=== PATIENT | female | born 1930 | race Caucasian/White ===

== ENCOUNTER 2016-12-24 15:45 | Inpatient (IN) | payer MEDICARE, MEDICAID ==
[~2016-12-24] VITALS: Ht 167.6 cm; Wt 94.8 kg
[~2016-12-24 15:45] MED LIST: ACET-868 PO; ATEN50TA PO; ATOR20TA PO; CARB-94 PO; DILT120C2 PO; DOCU-25 PO; FURO40TA5 PO; GABA300C PO; ISOS30TA6 PO; LACT1CAP39 PO; LOSA25TA3 PO; MELA3TAB PO
--- NOTE | 2016-12-24 16:15 | NUR ---
PT BIB RA, D/T LOW BP. PATIENT A/OX 3. BREATHING EVEN AND UNLABORED. NO SOB. PATIENT'S VITALS CHECKED, SAFETY MEASURES IN PLACE, COMFORT MEASURES IN PLACE. AWAITING MD ORDERS.
[2016-12-24] MEDS ORDERED: IV NS 0.9% 1,000 ML BAG IV ONE (16:30)
[2016-12-24] MEDS ORDERED: PIPERACILLIN /TAZOBACTAM 3.375 G in IV D5W 50 ML IV ONE (16:30)
[2016-12-24 16:36] LABS: EOSINOPHILS # (AUTO) 0.2 /CMM (0.0-0.7); HEMATOCRIT 38 % (33-45)
[2016-12-24 16:38] LABS: BASOPHILS % (AUTO) 0.2 % (0.0-2.0); EOSINOPHILS % (AUTO) 0.9 % (0.0-6.0); HEMOGLOBIN 12.7 g/dL (11.5-14.8); LYMPHOCYTES # (AUTO) 0.4 /CMM (0.8-4.8); LYMPHOCYTES % (AUTO) 2.1 % (20.0-44.0); MEAN CORPUSCULAR HEMOGLOBIN 29 PG (26.0-33.0); MEAN CORPUSCULAR HGB CONC 33 g/dl (31.0-36.0); MEAN CORPUSCULAR VOLUME 87 fL (82-100); MONOCYTES # (AUTO) 0.5 /CMM (0.1-1.30); MONOCYTES % (AUTO) 2.7 % (2.0-12.0); NEUTROPHILS # (AUTO) 16.7 /CMM (1.8-8.9); NEUTROPHILS % (AUTO) 94.1 % (43.0-81.0); PLATELET COUNT (AUTO) 316 /CMM (150-450); RDW COEFFICIENT OF VARIATION 13.7 (11.5-15.0); RED BLOOD CELL COUNT(AUTO) 4.39 MIL/uL (4.0-5.2); WHITE BLOOD COUNT (AUTO) 17.8 K/uL (4.3-11.0)
[2016-12-24] MEDS ORDERED: IV SET PRIMARY 1 EA INFUS.SET MC ONE ×2 (16:40→16:53)
[2016-12-24] MEDS ORDERED: IV NS 0.9% 1,000 ML ONE (16:40)
[2016-12-24 16:50] LABS: INR 1.11 (0.87-1.13)
[2016-12-24] MEDS ORDERED: IV NS 0.9% 2,000 ML ONE (16:53)
[2016-12-24 16:56] LABS: TROPONIN I 0.037 ng/mL (0.00-0.056)
[2016-12-24 16:58] LABS: ALANINE AMINOTRANSFERASE 8 U/L (12-78); ALBUMIN 2.3 g/dL (3.4-5.0); ALKALINE PHOSPHATASE 94 U/L (46-116); ASPARTATE AMINOTRANSFERASE 14 U/L (15-37); BILIRUBIN,DIRECT 0.1 mg/dL (0.0-0.2); BILIRUBIN,TOTAL 0.4 mg/dL (0.2-1.0); CARBON DIOXIDE 28 mmol/L (21-32); CHLORIDE 104 mmol/L (98-107); CREATININE 1.5 mg/dL (0.6-1.3); GLUCOSE 242 mg/dL (74-106); POTASSIUM 4.4 mmol/L (3.5-5.1); SODIUM SERUM 138 mmol/L (136-145); TOTAL PROTEIN, SERUM 5.7 g/dL (6.4-8.2); UREA NITROGEN, BLOOD 22 mg/dL (7-18)
--- NOTE | 2016-12-24 17:00 | NUR ---
SEPSIS PROTOCOL INITIATED. BOLUS CHALLENGE STARTED. WILL MONITOR.
[2016-12-24 17:02] LABS: APPEARANCE,URINE CLOUDY (CLEAR); COLOR,URINE DARK YELLOW (YELLOW); LEUKOCYTE ESTERASE ,URINE 3+ (NEGATIVE); NITRITE, URINE POSITIVE (NEGATIVE)
[2016-12-24 17:03] LABS: BLOOD, URINE 2+ Ery/uL (NEGATIVE); PROTEIN,URINE 2+ mg/dl (NEGATIVE); UROBILINOGEN,URINE NORMAL EU/dL (0.2)
--- NOTE | 2016-12-24 17:03 | NUR ---
NEW IV STARTED LEFT AC, 20 GAUGE.
[2016-12-24 17:04] LABS: BILIRUBIN,URINE NEGATIVE (NEGATIVE); KETONES,URINE NEGATIVE (NEGATIVE); UGLUCOSE NEGATIVE (NEGATIVE)
[2016-12-24 17:04] LABS: CALCIUM, SERUM 8.9 mg/dL (8.5-10.1)
[2016-12-24 17:14] LABS: BAND % (MANUAL) 5 % (0.0-5.0); EOSINOPHILS % (MANUAL) 1 % (0-4); LYMPHOCYTES % (MANUAL) 7 % (16-48); MONOCYTES % (MANUAL) 4 % (0-11.0); NEUTROPHILS % (MANUAL) 83 (42-76)
[2016-12-24 17:22] LABS: BACTERIA,URINE Moderate /HPF (None Seen); SQUAMOUS EPITHELIAL CELL,UR Few /HPF (None Seen); WBC,URINE TOO NUMEROUS TO COUN /HPF (0-3)
[2016-12-24] MEDS ORDERED: KETOROLAC TROMETHAMINE INJ 30 MG/ML VIAL ONE (17:30)
--- NOTE | 2016-12-24 17:45 | NUR ---
CALLED DR.JOSEF RAMOS, TRANSFERRED CALL TO
--- NOTE | 2016-12-24 17:56 | NUR ---
[facility]
[2016-12-24] MEDS ORDERED: CHOL200026 PO (18:12)
[2016-12-24] MEDS ORDERED: CLON0.5T4 PO (18:12)
[2016-12-24] MEDS ORDERED: CRAN3875 PO (18:12)
[2016-12-24] MEDS ORDERED: APIX5TAB PO (18:12)
[2016-12-24] MEDS ORDERED: SERT50TA PO (18:12)
[2016-12-24] MEDS ORDERED: POTA20TA83 PO (18:12)
[2016-12-24] MEDS ORDERED: SITA100T PO (18:12)
[2016-12-24] MEDS ORDERED: PANT40TA2 PO (18:12)
--- NOTE | 2016-12-24 18:13 | NUR ---
REPORT GIVEN TO RNTOMAS. PATIENT TO BE ADMITTED TO [facility], [facility]
[2016-12-24] MEDS ORDERED: VANCOMYCIN 1 GM in IV D5W 250 ML IV SCH (19:00)
--- NOTE | 2016-12-24 19:35 | NUR ---
RN INITIAL NOTE RECEIVED PT IN NO ACUTE DISTRESS FROM ER ON [facility]. TRANSFERRED PT TO BED. PT IS A/O X 3 AND ABLE TO MAKE NEEDS KNOWN. PT IS ON O2 VIA NC @ 4LPM AND TOLERATING WELL WITH O2 SAT @ 93. PT NOT C/O ANY SOB, DIFFICULTY BREATHING OR PAIN AT THIS TIME. PT PLACED ON TELE WITH SR WITH 1ST DEGREE HEART BLOCK ON THE MONITOR. PT HAS LFA 20G THAT WAS ACCIDENTLY PULLED OUT UPON TRANSFER TO BED. PT HAS LAC 20G THAT IS CLEAN DRY INTACT AND PATENT WITH VANCOMYCIN INFUSING @ 250ML/HR. BED IN LOW LOCK POSITION POST TRANSFER WITH RAILS UP X 2. CALL LIGHT WITHIN REACH AND ALL SAFETY MEASURES ENSURED AND CARRIED OUT. WILL CONTINUE TO MONITOR FOR ANY CHANGES IN CONDITION DURING SHIFT.
--- NOTE | 2016-12-24 19:53 | NUR ---
RN NOTE RECEIVED VERBAL ORDER TO PLACE FERNANDEZ CATHETER BY DR RAMOS. F/C PLACED SUCCESSFULLY WITH CLOUDY URINE DRAINING. DR RAMOS NOTIFIED.
[2016-12-24 20:00] VITALS: BP 106/56
[2016-12-24] MEDS ORDERED: ONDANSETRON HCL/PF 4 MG/2 ML VIAL IV PRN (20:00)
[2016-12-24] MEDS ORDERED: IV NS 0.9% 100 ML IV PRN (20:00)
--- NOTE | 2016-12-24 20:00 | NUR ---
RN NOTE VITALS TAKEN AND PT HAS FEVER OF 101.4, COOLING MEASURES STARTED AND MD NOTIFIED.
[2016-12-24] MEDS ORDERED: FEE PK DOSING 1 MIN EA MC ONE (20:23)
[2016-12-24] MEDS ORDERED: DEXTROSE 50%-WATER 50 ML DISP.SYRIN IV PRN (20:30)
[2016-12-24] MEDS: BLOOD SUGAR DIAGNOSTIC 1 EACH STRIP IN SCH ×2 (21:23→22:58)
[2016-12-24] MEDS: *INSULIN REGULAR(HUMULIN R)HUM 100 UNIT/ML VIAL SQ PRN ×2 (21:28→23:01)
[2016-12-24] MEDS ORDERED: INSULIN DETEMIR 100 UNIT/ML CARTRIDGE SQ SCH (22:00)
[2016-12-24] MEDS ORDERED: BLOOD SUGAR DIAGNOSTIC 1 EACH STRIP VI SCH (22:00)
[2016-12-24] MEDS ORDERED: SECONDARY IV SET 1 EA INFUS.SET MC ONE (23:23)
[2016-12-24] MEDS ORDERED: IV SET PRIMARY PUMP SET 1 EA INFUS.SET MC ONE (23:23)
[2016-12-24] MEDS ORDERED: IV NS 0.9% 250 ML IV ONE (23:23)
[2016-12-24] MEDS: PIPERACILLIN /TAZOBACTAM 2.25 G in IV D5W 50 ML IV SCH (23:45)
[2016-12-25] VITALS (7 sets, daily range): BP systolic 92–129; BP diastolic 47–59
[2016-12-25] MEDS ORDERED: PIPERACILLIN /TAZOBACTAM 3.375 G in IV D5W 50 ML IV SCH ×2
[2016-12-25] MEDS: ACETAMINOPHEN 325 MG TABLET PO PRN ×2 (00:23→22:40)
[2016-12-25] MEDS ORDERED: IV NS 0.9% 1,000 ML ONE (02:49)
[2016-12-25] MEDS: PIPERACILLIN /TAZOBACTAM 2.25 G in IV D5W 50 ML IV SCH ×3 (06:39→17:56)
[2016-12-25] MEDS: PANTOPRAZOLE 40 MG TABLET.DR PO SCH (06:39)
[2016-12-25] MEDS: BLOOD SUGAR DIAGNOSTIC 1 EACH STRIP IN SCH ×4 (06:39→21:59)
[2016-12-25] MEDS: INSULIN REGULAR, HUMAN 100 UNIT/ML 3 ML VIAL SQ PRN ×3 (06:56→17:56)
--- NOTE | 2016-12-25 07:00 | NUR ---
RN OPENING NOTES RECEIVED PATIENT ASLEEP IN BED. AROUSABLE TO VERBAL AND TACTILE STIMULI, AO X4. ABLE TO MAKE NEEDS KNOWN. NO RESPIRATORY DISTRESS NOTED, BREATHING EVEN AND UNLABORED, O2 SAT 100% ON O2 4LPM VIA NC. ON TELE SINUS RHYTHM IN THE HIGH 70S. AFEBRILE. DENIES ANY PAIN OR DISCOMFORT @ THIS TIME. FERNANDEZ INTACT & DRAINING, SOME CLOUDINESS NOTED IN URINE. LAC IV SITE CDI WITH IV FLUIDS 1/2 NS RUNNING @ 90CC/HR. SIDE RAILS UP, BED LOCKED AND IN LOWEST POSITION, CALL LIGHT WITHIN EASY REACH. CONTINUE TO MONITOR.
--- NOTE | 2016-12-25 07:11 | NUR ---
RN CLOSING NOTE PT REMAINS IN NO ACUTE DISTRESS IN BED. PT DID NOT HAVE ANY SIGNIFICANT CHANGE IN CONDITION DURING SHIFT. ALL NEEDS MET ALL ORDERS CARRIED OUT. WILL ENDORSE TO AM RN FOR CONTINUITY OF CARE.
[2016-12-25 07:22] LABS: CALCIUM, SERUM 8.4 mg/dL (8.5-10.1); CARBON DIOXIDE 24 mmol/L (21-32); CHLORIDE 108 mmol/L (98-107); CREATININE 1.5 mg/dL (0.6-1.3); GLUCOSE 141 mg/dL (74-106); POTASSIUM 4.5 mmol/L (3.5-5.1); SODIUM SERUM 141 mmol/L (136-145); UREA NITROGEN, BLOOD 24 mg/dL (7-18)
[2016-12-25 07:35] LABS: BASOPHILS # (AUTO) 0.1 /CMM (0.0-0.2); BASOPHILS % (AUTO) 0.7 % (0.0-2.0); EOSINOPHILS # (AUTO) 0.8 /CMM (0.0-0.7); EOSINOPHILS % (AUTO) 4.2 % (0.0-6.0); HEMATOCRIT 39 % (33-45); LYMPHOCYTES % (AUTO) 5.2 % (20.0-44.0); MEAN CORPUSCULAR HEMOGLOBIN 29 PG (26.0-33.0); MEAN CORPUSCULAR HGB CONC 33 g/dl (31.0-36.0); MEAN CORPUSCULAR VOLUME 87 fL (82-100); MONOCYTES # (AUTO) 0.5 /CMM (0.1-1.30); MONOCYTES % (AUTO) 2.5 % (2.0-12.0); NEUTROPHILS % (AUTO) 87.4 % (43.0-81.0); PLATELET COUNT (AUTO) 260 /CMM (150-450); RDW COEFFICIENT OF VARIATION 14.2 (11.5-15.0); RED BLOOD CELL COUNT(AUTO) 4.45 MIL/uL (4.0-5.2); WHITE BLOOD COUNT (AUTO) 19.4 K/uL (4.3-11.0)
[2016-12-25] MEDS: DOCUSATE SODIUM 100 MG CAPSULE PO SCH ×3 (08:50→16:35)
[2016-12-25] MEDS: clonazePAM 0.5 MG TABLET PO SCH ×2 (08:51→16:35)
[2016-12-25] MEDS: SERTRALINE HCL 50 MG TABLET PO SCH (08:51)
[2016-12-25 09:01] LABS: BAND % (MANUAL) 11 % (0.0-5.0); EOSINOPHILS % (MANUAL) 6 % (0-4); LYMPHOCYTES % (MANUAL) 7 % (16-48); NEUTROPHILS % (MANUAL) 76 (42-76)
[2016-12-25] MEDS ORDERED: IV NS 0.9% 1,000 ML IV PRN ×2 (09:49→11:24)
[2016-12-25] MEDS: CARBIDOPA/LEVODOPA 25/250 MG 1 UDTAB PO SCH ×3 (11:07→16:35)
[2016-12-25] MEDS ORDERED: Z GUARD REMEDY 2 OZ OINT TP PRN (13:30)
[2016-12-25] MEDS: IV NS 0.9% 1,000 ML IV SCH (16:26)
--- NOTE | 2016-12-25 18:30 | NUR ---
RN NOTES PATIENT ASLEEP IN BED. VSS STABLE, NO RESPIRATORY DISTRESS NOTED. BREATHING EVEN AND UNLABORED. TELE SINUS RHYTHM IN THE 70S. NO SIGNIFICANT EVENTS DURING SHIFT. ALL NEEDS MET PROMPTLY. RIGHT HAND IV SITE CDI WITH FLUIDS 1/2 NS RUNNING @ 70CC/HR. SIDE RAILS UP, BED LOCKED AND IN LOWEST POSITION, CALL LIGHT WITHIN EASY REACH.
--- NOTE | 2016-12-25 19:20 | NUR ---
RN INITIAL NOTE RECEIVED PT IN NO ACUTE DISTRESS FROM ER ON [facility]. TRANSFERRED PT TO BED. PT IS A/O X 3 AND ABLE TO MAKE NEEDS KNOWN. PT IS ON O2 VIA NC @ 4LPM AND TOLERATING WELL WITH O2 SAT @ 94. PT NOT C/O ANY SOB, DIFFICULTY BREATHING OR PAIN AT THIS TIME. PT PLACED ON TELE WITH SR WITH 1ST DEGREE HEART BLOCK ON THE MONITOR. PT HAS LAC 20G THAT IS CLEAN DRY INTACT AND PATENT WITH NS @ 70ML/HR. BED IN LOW LOCK POSITION WITH RAILS UP X 2. CALL LIGHT WITHIN REACH AND ALL SAFETY MEASURES ENSURED AND CARRIED OUT. WILL CONTINUE TO MONITOR FOR ANY CHANGES IN CONDITION DURING SHIFT.
[2016-12-25] MEDS ORDERED: SECONDARY IV SET 1 EA INFUS.SET MC ONE (19:54)
[2016-12-25] MEDS ORDERED: VANCOMYCIN 1 GM in IV D5W 250 ML IV SCH (20:00)
[2016-12-25] MEDS: *INSULIN REGULAR(HUMULIN R)HUM 100 UNIT/ML VIAL SQ PRN (21:58)
[2016-12-25] MEDS: INSULIN DETEMIR 100 UNIT/ML CARTRIDGE SQ SCH (21:59)
[2016-12-26] VITALS: BP 116/57
[2016-12-26] MEDS: PIPERACILLIN /TAZOBACTAM 2.25 G in IV D5W 50 ML IV SCH ×2 (00:27→06:35)
[2016-12-26 04:00] VITALS: BP 142/62
[2016-12-26 06:32] LABS: BASOPHILS % (AUTO) 0.2 % (0.0-2.0); EOSINOPHILS # (AUTO) 0.7 /CMM (0.0-0.7); EOSINOPHILS % (AUTO) 8.2 % (0.0-6.0); HEMATOCRIT 36 % (33-45); HEMOGLOBIN 12.3 g/dL (11.5-14.8); LYMPHOCYTES # (AUTO) 1.1 /CMM (0.8-4.8); LYMPHOCYTES % (AUTO) 12.5 % (20.0-44.0); MEAN CORPUSCULAR HEMOGLOBIN 29 PG (26.0-33.0); MEAN CORPUSCULAR HGB CONC 34 g/dl (31.0-36.0); MEAN CORPUSCULAR VOLUME 87 fL (82-100); MONOCYTES # (AUTO) 0.1 /CMM (0.1-1.30); MONOCYTES % (AUTO) 1.4 % (2.0-12.0); NEUTROPHILS # (AUTO) 6.5 /CMM (1.8-8.9); NEUTROPHILS % (AUTO) 77.7 % (43.0-81.0); PLATELET COUNT (AUTO) 234 /CMM (150-450); RDW COEFFICIENT OF VARIATION 14.2 (11.5-15.0); RED BLOOD CELL COUNT(AUTO) 4.17 MIL/uL (4.0-5.2); WHITE BLOOD COUNT (AUTO) 8.4 K/uL (4.3-11.0)
[2016-12-26] MEDS: BLOOD SUGAR DIAGNOSTIC 1 EACH STRIP IN SCH ×4 (06:35→22:00)
[2016-12-26] MEDS: IV NS 0.9% 1,000 ML IV SCH (06:35)
[2016-12-26] MEDS: PANTOPRAZOLE 40 MG TABLET.DR PO SCH (06:35)
[2016-12-26 06:47] LABS: CALCIUM, SERUM 8.3 mg/dL (8.5-10.1); CARBON DIOXIDE 23 mmol/L (21-32); CHLORIDE 110 mmol/L (98-107); CREATININE 0.9 mg/dL (0.6-1.3); GLUCOSE 122 mg/dL (74-106); POTASSIUM 3.8 mmol/L (3.5-5.1); SODIUM SERUM 143 mmol/L (136-145); UREA NITROGEN, BLOOD 18 mg/dL (7-18)
[2016-12-26 08:00] VITALS: BP 144/65
--- NOTE | 2016-12-26 08:22 | NUR ---
RN INITIAL NOTE PT ALERT AND ORIENTED x3 IN NO ACUTE DISTRESS ABLE TO MAKE NEEDS KNOWN. PT IS ON O2 VIA NC @ 4LPM AND TOLERATING WELL WITH O2 SAT @ 100. NO C/O ANY SOB, DIFFICULTY BREATHING OR PAIN AT THIS TIME. PT ON TELE WITH SR WITH 1ST DEGREE HEART BLOCK ON THE MONITOR. PT HAS LAC 20G THAT IS CLEAN DRY INTACT AND PATENT WITH NS @ 70ML/HR. BED IN LOW LOCK POSITION WITH RAILS UP X 2. CALL LIGHT WITHIN REACH AND ALL SAFETY MEASURES ENSURED AND CARRIED OUT. WILL CONTINUE TO MONITOR FOR ANY CHANGES IN CONDITION DURING SHIFT.
[2016-12-26] MEDS: DOCUSATE SODIUM 100 MG CAPSULE PO SCH ×3 (09:04→17:22)
[2016-12-26] MEDS: clonazePAM 0.5 MG TABLET PO SCH ×2 (09:04→17:22)
[2016-12-26] MEDS: SERTRALINE HCL 50 MG TABLET PO SCH (09:04)
[2016-12-26] MEDS: CARBIDOPA/LEVODOPA 25/250 MG 1 UDTAB PO SCH ×3 (09:04→17:22)
[2016-12-26] MEDS: ATENOLOL 25 MG TABLET PO SCH (11:41)
[2016-12-26] MEDS: *INSULIN REGULAR(HUMULIN R)HUM 100 UNIT/ML VIAL SQ PRN ×2 (11:49→17:29)
[2016-12-26 12:00] VITALS: BP 162/72
[2016-12-26] MEDS ORDERED: SECONDARY IV SET 1 EA INFUS.SET MC ONE (14:07)
[2016-12-26] MEDS: CEFTRIAXONE 1 G in IV D5W 50 ML IV SCH (14:13)
[2016-12-26 16:00] VITALS: BP 169/82
[2016-12-26] MEDS: APIXABAN 5 MG TABLET PO SCH (17:00)
--- NOTE | 2016-12-26 17:30 | NUR ---
RN NOTE PATIENT BECAME EXTREMELY AGITATED AND SLIGHTLY AGGRESSIVE TONIGHT WITH STAFF AND ALSO ROOMMATE PATIENT. RN INFORMED CHARGE NURSE SOON IN REGARDS TO THE PATIENTS BEHAVIOR PATIENT WILL BE TRANSFERRED TO ROOM 113
--- NOTE | 2016-12-26 18:25 | NUR ---
RN CLOSING NOTE PT REMAINS IN NO ACUTE DISTRESS IN BED. PT DID NOT HAVE ANY SIGNIFICANT CHANGE IN CONDITION DURING SHIFT. HOWEVER PATIENT DID BECOME EXTREME AGITATED AND SLIGHTLY AGGRESSIVE AT 1700. ALL NEEDS MET ALL ORDERS CARRIED OUT. WILL ENDORSE TO PM RN FOR CONTINUITY OF CARE.
[2016-12-26] MEDS ORDERED: [UNRECOGNIZED DRUG - OTHER] IV ONE (18:53)
[2016-12-26] MEDS ORDERED: IV D5/ 0.9% NACL 0 ML IV ONE (18:54)
[2016-12-26] MEDS ORDERED: IV NS 0.9% 1,000 ML ONE (18:56)
[2016-12-26] MEDS ORDERED: IV SET PRIMARY PUMP SET 1 EA INFUS.SET MC ONE (19:00)
--- NOTE | 2016-12-26 19:16 | NUR ---
PATIENT TRANSFERRED TO ROOM 113-2 NO COMPLAINTS ALL NEEDS ATTENDED . IV FLUIDS RESTARTED. INITIALLY WRONG IV FLUIDS PULLED AND RETURNED
--- NOTE | 2016-12-26 19:30 | NUR ---
RN INITIAL NOTE RECEIVED PATIENT IN BED, AWAKE, ALERT AND ORIENTED X3, ABLE TO MAKE NEEDS KNOWN. PT IS ON O2 VIA NC @ 4LPM AND TOLERATING WELL WITH O2 SAT @ 95. PATIENT DENIES ANY SOB, FREE FROM ANY S/S OF RESPIRATORY DISTRESS. PATIENT ON TERLEMETRY MONITORING, REVEALING SINUS RHYTHM HR = 84 AT THIS TIME. PT HAS LAC 20G THAT IS CLEAN DRY INTACT AND PATENT WITH NS @ 70ML/HR, FREE FROM ANY S/S OF INFILTRATION OR PHLEBITIS. BED IN LOW LOCK POSITION WITH RAILS UP X 2. CALL LIGHT WITHIN REACH AND ALL SAFETY MEASURES ENSURED AND CARRIED OUT. WILL CONTINUE TO MONITOR FOR ANY CHANGES IN CONDITION DURING SHIFT.
[2016-12-26 20:00] VITALS: BP 174/85
[2016-12-26] MEDS: INSULIN DETEMIR 100 UNIT/ML CARTRIDGE SQ SCH (22:00)
--- NOTE | 2016-12-26 22:27 | NUR ---
RN NOTES PATIENT REFUSING BLOOD SUGAR TO BE CHECKED, SCREAMING "YOU'RE NOT GOING TO TOUCH ME. I DONT WANT YOU CHECKING ANYTHING." EXPLAINED TO THE PATIENT THE RISKS AND CONSEQUENCES OF NOT HAVING BLOOD SUGAR CHECKED. PATIENT VERBALIZES UNDERSTANDING BUT STILL STRONGLY REFUSING. WILL ATTEMPT TO CHECK BLOOD SUGAR AGAIN AT A LATER TIME. NO VISUAL S/S OF HYPO OR HYPERGLYCEMIA AT THIS TIME. WILL CONTINUE TO CLOSELY MONITOR
[2016-12-27] VITALS (7 sets, daily range): BP systolic 139–193; BP diastolic 79–94
--- NOTE | 2016-12-27 00:45 | NUR ---
RN NOTES PATIENT'S BLOOD PRESSURE 187/94 ON AUTOMATIC MACHINE. CHECKED MANUALLY, 190/104. DR RAMOS NOTIFIED, WITH NEW ORDER FOR AMLODIPINE 5MG DAILY, 1ST DOSE TO START NOW, AND HYDRALAZINE 25MG PO Q4H PRN FOR SYSTOLIC BP GREATER THAN OR EQUAL TO 170. ORDERS READ BACK FOR CLARIFICATION. WILL CARRY OUT ALL NEW ORDERS
[2016-12-27] MEDS ORDERED: AMLODIPINE BESYLATE 5 MG TABLET ONE (00:58)
[2016-12-27] MEDS ORDERED: hydrALAZINE HCL 25 MG TABLET PO PRN (01:00)
[2016-12-27] MEDS: AMLODIPINE BESYLATE 5 MG TABLET PO SCH ×2 (01:00→09:57)
[2016-12-27] MEDS ORDERED: LORAZEPAM INJ 2 MG/ML VIAL ONE (01:14)
[2016-12-27] MEDS ORDERED: hydrALAZINE HCL IV 20 MG VIAL ONE (01:14)
[2016-12-27] MEDS: LORAZEPAM INJ 2 MG/ML VIAL IV PRN ×3 (01:29→20:25)
--- NOTE | 2016-12-27 01:30 | NUR ---
RN NOTES PATIENT REFUSED PO MEDICATION. PATIENT NOTED TO BE SEVERELY AGITATED, REFUSING CARE AND INCLUDING MEDICATION. EXPLAINED RISKS AND CONSEQUENCES OF REFUSING BP MEDICATION WHEN BP IS HIGH SUCH STROKE OR . PATIENT VERBALIZES UNDERSTANDING, BUT STILL STRONGLY REFUSES, STATING "IM NOT TAKING ANY PILLS. I'D RATHER BLOW MY TOP OFF." DR RAMOS NOTIFIED REGARDING PATIENT'S CURRENT BEHAVIOR, WITH NEW ORDER FOR ATIVAN 0.5MG IV Q4H PRN FOR AGITATION, AND HYDRALAZINE 10MG IV PUSH FOR SYSTOLIC BLOOD PRESSURE GREATER THAN 170. ORDERS READ BACK FOR CLARIFICATION. WILL CARRY OUT ALL NEW ORDERS
[2016-12-27] MEDS: hydrALAZINE HCL IV 20 MG VIAL IV PRN ×2 (01:31→20:25)
--- NOTE | 2016-12-27 02:08 | NUR ---
RN NOTES PATIENT'S BLOOD PRESSURE RECHECKED MANUALLY, 139/81. PATIENT SLEEPING AT THIS TIME. WILL CONTINUE TO CLOSELY MONITOR
--- NOTE | 2016-12-27 07:00 | NUR ---
RN CLOSING NOTES PATIENT IN BED, AWAKE, ALERT, ABLE TO VERBALIZE NEEDS, CALM AT THIS TIME, UNABLE TO RECALL EVENTS (ANXIOUS/VERBALLY COMBATIVE/AGITATED STATE) LAST NIGHT, STATING "I FEEL GREAT, I SLEPT ALL NIGHT." PATIENT ENDORSED TO THE AM SHIFT NURSE FOR CONTINUITY OF CARE.
[2016-12-27] MEDS: ACETAMINOPHEN 325 MG TABLET PO PRN (07:02)
[2016-12-27] MEDS: BLOOD SUGAR DIAGNOSTIC 1 EACH STRIP IN SCH ×4 (07:02→21:51)
[2016-12-27] MEDS: INSULIN REGULAR, HUMAN 100 UNIT/ML 3 ML VIAL SQ PRN ×2 (07:06→17:19)
[2016-12-27 07:19] LABS: CALCIUM, SERUM 8.3 mg/dL (8.5-10.1); CARBON DIOXIDE 24 mmol/L (21-32); CHLORIDE 110 mmol/L (98-107); CREATININE 0.7 mg/dL (0.6-1.3); GLUCOSE 261 mg/dL (74-106); POTASSIUM 3.8 mmol/L (3.5-5.1); SODIUM SERUM 140 mmol/L (136-145); UREA NITROGEN, BLOOD 11 mg/dL (7-18)
[2016-12-27 07:31] LABS: BASOPHILS % (AUTO) 0.2 % (0.0-2.0); EOSINOPHILS # (AUTO) 0.5 /CMM (0.0-0.7); HEMATOCRIT 36 % (33-45); LYMPHOCYTES % (AUTO) 13.8 % (20.0-44.0); MEAN CORPUSCULAR HEMOGLOBIN 29 PG (26.0-33.0); MEAN CORPUSCULAR HGB CONC 34 g/dl (31.0-36.0); MEAN CORPUSCULAR VOLUME 86 fL (82-100); MONOCYTES # (AUTO) 0.1 /CMM (0.1-1.30); MONOCYTES % (AUTO) 1.5 % (2.0-12.0); NEUTROPHILS # (AUTO) 5.4 /CMM (1.8-8.9); NEUTROPHILS % (AUTO) 77.5 % (43.0-81.0); PLATELET COUNT (AUTO) 247 /CMM (150-450); RDW COEFFICIENT OF VARIATION 14.1 (11.5-15.0); RED BLOOD CELL COUNT(AUTO) 4.13 MIL/uL (4.0-5.2)
[2016-12-27] MEDS: CARBIDOPA/LEVODOPA 25/250 MG 1 UDTAB PO SCH ×3 (08:49→17:09)
[2016-12-27] MEDS: PANTOPRAZOLE 40 MG TABLET.DR PO SCH (08:49)
[2016-12-27] MEDS: clonazePAM 0.5 MG TABLET PO SCH ×2 (08:49→17:01)
[2016-12-27] MEDS: LINAGLIPTIN 5 MG TABLET PO SCH (08:49)
[2016-12-27] MEDS: SERTRALINE HCL 50 MG TABLET PO SCH (08:50)
[2016-12-27] MEDS: APIXABAN 5 MG TABLET PO SCH ×2 (09:00→17:10)
[2016-12-27] MEDS ORDERED: SITAGLIPTIN PHOSPHATE 50 MG TABLET PO SCH (09:00)
[2016-12-27] MEDS: ATENOLOL 25 MG TABLET PO SCH (09:02)
[2016-12-27] MEDS: DOCUSATE SODIUM 100 MG CAPSULE PO SCH ×3 (09:03→17:01)
[2016-12-27] MEDS: *INSULIN REGULAR(HUMULIN R)HUM 100 UNIT/ML VIAL SQ PRN (12:20)
[2016-12-27] MEDS ORDERED: SECONDARY IV SET 1 EA INFUS.SET MC ONE (12:30)
[2016-12-27] MEDS: CEFTRIAXONE 1 G in IV D5W 50 ML IV SCH (12:30)
--- NOTE | 2016-12-27 13:00 | NUR ---
RN NOTE PATIENT BECAME EXTREMELY AGITATED AND SLIGHTLY AGGRESSIVE TONIGHT WITH STAFF AND ALSO ROOMMATE PATIENT. RN INFORMED CHARGE NURSE SOON IN REGARDS TO THE PATIENTS BEHAVIOR
--- NOTE | 2016-12-27 13:35 | NUR ---
RN NOTE PATIENT IV SALINE LOCKED DUE TO PATIENT INCREASED AGITATION. PULLING OF IV POLE
[2016-12-27] MEDS ORDERED: IV SET PRIMARY 1 EA INFUS.SET MC ONE (16:45)
[2016-12-27] MEDS ORDERED: IV NS 0.9% 1,000 ML ONE (16:45)
[2016-12-27] MEDS ORDERED: GUAIFENESIN/CODEINE 10 ML UDC PO PRN (17:30)
[2016-12-27] MEDS: LOSARTAN POTASSIUM 50 MG TABLET PO SCH (17:48)
--- NOTE | 2016-12-27 18:00 | NUR ---
RN NOTE 0.9% NS PULLED FROM PYXIS FOR PRIMARY INFUSION FLUIDS
--- NOTE | 2016-12-27 18:37 | NUR ---
RN INITIAL NOTE PT ALERT AND ORIENTED x3 IN NO ACUTE DISTRESS ABLE TO MAKE NEEDS KNOWN. PT IS ON O2 VIA NC @ 2LPM AND TOLERATING WELL WITH O2 SAT @ 100. NO C/O ANY SOB, DIFFICULTY BREATHING OR PAIN AT THIS TIME. PT ON TELE WITH SR WITH 1ST DEGREE HEART BLOCK ON THE MONITOR. PT HAS LAC 20G THAT IS CLEAN DRY INTACT AND PATENT WITH NS @ 70ML/HR. BED IN LOW LOCK POSITION WITH RAILS UP X 2. CALL LIGHT WITHIN REACH AND ALL SAFETY MEASURES ENSURED AND CARRIED OUT. WILL CONTINUE TO MONITOR FOR ANY CHANGES IN CONDITION DURING SHIFT.
--- NOTE | 2016-12-27 18:39 | NUR ---
RN NOTE PATIENT FERNANDEZ D/S IV D/C DUE TO PATIENT PULLING THE IV OUT. RN ATTEMPTED TO REINSERT NEW IV UNSUCCESSFUL. WILL ENDORSE TO NEXT SHIFT. PT ALERT AND ORIENTED NOT FURTHER ISSUE NOTED THROUGHOUT THE DAY. MD ADDED ADDITIONAL MEDICATION FOR HYPERTENSION
--- NOTE | 2016-12-27 19:54 | NUR ---
RN INITIAL NOTE PT ALERT AND ORIENTED x3 IN NO ACUTE DISTRESS ABLE TO MAKE NEEDS KNOWN. PT IS ON O2 VIA NC @ 2LPM AND TOLERATING WELL WITH O2 SAT @ 100. NO C/O ANY SOB, DIFFICULTY BREATHING OR PAIN AT THIS TIME. PT ON TELE WITH SR WITH 1ST DEGREE HEART BLOCK ON THE MONITOR. PT HAS PULLED OUT LAC 20G, NO BLEEDING , BED IN LOW LOCK POSITION WITH RAILS UP X 2. CALL LIGHT WITHIN REACH AND ALL SAFETY MEASURES ENSURED AND CARRIED OUT. WILL CONTINUE TO MONITOR FOR ANY CHANGES IN CONDITION DURING SHIFT, ON 1;1 SITTER.
[2016-12-27] MEDS ORDERED: INSULIN DETEMIR 100 UNIT/ML CARTRIDGE SQ SCH (22:00)
[2016-12-28] VITALS (7 sets, daily range): BP systolic 115–190; BP diastolic 53–89
[2016-12-28] MEDS: hydrALAZINE HCL IV 20 MG VIAL IV PRN (04:44)
--- NOTE | 2016-12-28 06:07 | NUR ---
RN CLOSING NOTES PT ALERT AND ORIENTED x2] IN NO ACUTE DISTRESS ABLE TO MAKE NEEDS KNOWN. PT IS ON O2 VIA NC @ 2LPM AND TOLERATING WELL WITH O2 SAT @ 100. NO C/O ANY SOB, DIFFICULTY BREATHING OR PAIN AT THIS TIME. PT ON TELE WITH SR WITH 1ST DEGREE HEART BLOCK ON THE MONITOR. PT HAS PULLED OUT LAC 20G, RE INSERTED 24 G ON LEFT WRIST, NO BLEEDING , BED IN LOW LOCK POSITION WITH RAILS UP X 2. CALL LIGHT WITHIN REACH AND ALL SAFETY MEASURES ENSURED AND CARRIED OUT. WILL CONTINUE TO MONITOR FOR ANY CHANGES IN CONDITION DURING SHIFT, ON 1;1 SITTER AM BP 190/89, PRN APRESOLINE IV GIVEN, PT IN NO DISTRESS.
[2016-12-28 08:14] LABS: BASOPHILS % (AUTO) 0.2 % (0.0-2.0); EOSINOPHILS # (AUTO) 0.3 /CMM (0.0-0.7); EOSINOPHILS % (AUTO) 4.2 % (0.0-6.0); HEMATOCRIT 38 % (33-45); HEMOGLOBIN 12.8 g/dL (11.5-14.8); LYMPHOCYTES # (AUTO) 1.4 /CMM (0.8-4.8); LYMPHOCYTES % (AUTO) 17.3 % (20.0-44.0); MEAN CORPUSCULAR HEMOGLOBIN 29 PG (26.0-33.0); MEAN CORPUSCULAR HGB CONC 34 g/dl (31.0-36.0); MEAN CORPUSCULAR VOLUME 86 fL (82-100); MONOCYTES # (AUTO) 0.3 /CMM (0.1-1.30); MONOCYTES % (AUTO) 3.8 % (2.0-12.0); NEUTROPHILS # (AUTO) 5.9 /CMM (1.8-8.9); NEUTROPHILS % (AUTO) 74.5 % (43.0-81.0); PLATELET COUNT (AUTO) 269 /CMM (150-450); RED BLOOD CELL COUNT(AUTO) 4.41 MIL/uL (4.0-5.2)
[2016-12-28 08:30] LABS: CALCIUM, SERUM 8.7 mg/dL (8.5-10.1); CARBON DIOXIDE 27 mmol/L (21-32); CHLORIDE 111 mmol/L (98-107); CREATININE 0.6 mg/dL (0.6-1.3); GLUCOSE 198 mg/dL (74-106); POTASSIUM 3.7 mmol/L (3.5-5.1); SODIUM SERUM 146 mmol/L (136-145); UREA NITROGEN, BLOOD 11 mg/dL (7-18)
[2016-12-28] MEDS: PANTOPRAZOLE 40 MG TABLET.DR PO SCH (09:13)
[2016-12-28] MEDS: BLOOD SUGAR DIAGNOSTIC 1 EACH STRIP IN SCH ×4 (09:13→21:23)
[2016-12-28] MEDS: CARBIDOPA/LEVODOPA 25/250 MG 1 UDTAB PO SCH ×3 (09:14→16:52)
[2016-12-28] MEDS: DOCUSATE SODIUM 100 MG CAPSULE PO SCH ×3 (09:14→16:51)
[2016-12-28] MEDS: LINAGLIPTIN 5 MG TABLET PO SCH (09:14)
[2016-12-28] MEDS: FUROSEMIDE 40 MG TABLET PO SCH (09:18)
[2016-12-28] MEDS: clonazePAM 0.5 MG TABLET PO SCH ×2 (09:19→16:52)
[2016-12-28] MEDS: SERTRALINE HCL 50 MG TABLET PO SCH (09:19)
[2016-12-28] MEDS: AMLODIPINE BESYLATE 5 MG TABLET PO SCH ×2 (09:20→16:53)
[2016-12-28] MEDS: ATENOLOL 25 MG TABLET PO SCH ×2 (09:20→16:52)
[2016-12-28] MEDS: ISOSORBIDE MONONITRATE (30MG) 30 MG TAB.SR.24H PO SCH (09:21)
[2016-12-28] MEDS: APIXABAN 5 MG TABLET PO SCH ×2 (09:21→16:53)
[2016-12-28] MEDS: LOSARTAN POTASSIUM 50 MG TABLET PO SCH (09:21)
[2016-12-28] MEDS: CEFTRIAXONE 1 G in IV D5W 50 ML IV SCH (12:25)
[2016-12-28] MEDS: INSULIN REGULAR, HUMAN 100 UNIT/ML 3 ML VIAL SQ PRN ×2 (12:31→16:59)
[2016-12-28] MEDS: INSULIN ASPART NOVOLOG 100 UNIT/ML CARTRIDGE SQ SCH ×2 (13:38→16:58)
--- NOTE | 2016-12-28 19:09 | NUR ---
RN CLOSING NOTES RECEIVED PT ALERT AND ORIENTED x2] IN NO ACUTE DISTRESS ABLE TO MAKE NEEDS KNOWN. PT IS ON O2 VIA NC @ 2LPM AND TOLERATING WELL WITH O2 SAT @ 100. NO C/O ANY SOB, DIFFICULTY BREATHING , WITH NO SITTER FOR TONIGHT, WITH 24 G ON LEFT WRIST, NO BLEEDING , BED IN LOW LOCK POSITION WITH RAILS UP SX 2. CALL LIGHT WITHIN REACH AND ALL SAFETY MEASURES ENSURED AND CARRIED OUT. WILL CONTINUE TO MONITOR FOR ANY CHANGES IN CONDITION DURING.
[2016-12-28] MEDS ORDERED: INSULIN DETEMIR 100 UNIT/ML CARTRIDGE SQ SCH (22:00)
--- NOTE | 2016-12-28 22:31 | NUR ---
BS RECHECKED 99 PT STABLE NO DISTRESS.
[2016-12-29] VITALS: BP 122/66
[2016-12-29 05:26] VITALS: BP 148/68
--- NOTE | 2016-12-29 06:14 | NUR ---
RN CLOSING NOTES ENDORSED PT ALERT AND ORIENTED x2] IN NO ACUTE DISTRESS ABLE TO MAKE NEEDS KNOWN. PT IS ON O2 VIA NC @ 2LPM AND TOLERATING WELL WITH O2 SAT @ 100. NO C/O ANY SOB, DIFFICULTY BREATHING , WITH NO SITTER FOR TONIGHT, NO EPOSODE OF RESTLESSNESS, WITH 24 G ON LEFT WRIST, NO BLEEDING , BED IN LOW LOCK POSITION WITH RAILS UP SX 2. CALL LIGHT WITHIN REACH AND ALL SAFETY MEASURES ENSURED AND CARRIED OUT. WILL CONTINUE TO MONITOR FOR ANY CHANGES IN CONDITION DURING
[2016-12-29 08:08] LABS: CARBON DIOXIDE 27 mmol/L (21-32); CHLORIDE 109 mmol/L (98-107); CREATININE 0.6 mg/dL (0.6-1.3); GLUCOSE 138 mg/dL (74-106); POTASSIUM 4.1 mmol/L (3.5-5.1); SODIUM SERUM 144 mmol/L (136-145); UREA NITROGEN, BLOOD 13 mg/dL (7-18)
[2016-12-29] MEDS: DOCUSATE SODIUM 100 MG CAPSULE PO SCH (08:56)
[2016-12-29] MEDS: CARBIDOPA/LEVODOPA 25/250 MG 1 UDTAB PO SCH (08:56)
[2016-12-29] MEDS: clonazePAM 0.5 MG TABLET PO SCH (08:56)
[2016-12-29] MEDS: PANTOPRAZOLE 40 MG TABLET.DR PO SCH (08:56)
[2016-12-29] MEDS: FUROSEMIDE 40 MG TABLET PO SCH (08:56)
[2016-12-29] MEDS: LINAGLIPTIN 5 MG TABLET PO SCH (08:56)
[2016-12-29] MEDS: SERTRALINE HCL 50 MG TABLET PO SCH (08:56)
[2016-12-29] MEDS: AMLODIPINE BESYLATE 5 MG TABLET PO SCH (08:57)
[2016-12-29] MEDS: ISOSORBIDE MONONITRATE (30MG) 30 MG TAB.SR.24H PO SCH (08:57)
[2016-12-29 08:58] VITALS: BP 166/78
[2016-12-29] MEDS: ATENOLOL 25 MG TABLET PO SCH (08:58)
[2016-12-29] MEDS: BLOOD SUGAR DIAGNOSTIC 1 EACH STRIP IN SCH (08:59)
[2016-12-29] MEDS ORDERED: LOSARTAN POTASSIUM 50 MG TABLET PO SCH (09:00)
[2016-12-29] MEDS: APIXABAN 5 MG TABLET PO SCH (09:00)
[2016-12-29] MEDS: INSULIN ASPART NOVOLOG 100 UNIT/ML CARTRIDGE SQ SCH (09:05)
[2016-12-29] MEDS: INSULIN REGULAR, HUMAN 100 UNIT/ML 3 ML VIAL SQ PRN (09:06)
[2016-12-29] MEDS: CEFTRIAXONE 1 G in IV D5W 50 ML IV SCH (11:50)
--- NOTE | 2016-12-29 14:34 | NUR ---
Pt discharged to [facility] as ordered by . PtAOx3 and stable.Pt denies pain/discomfort.Pt IV D/C'd. Report given to GEOVANNI Hong at facility..Pt transported via ambulance. VSS prior to transport. Pt BS at lunch time 225. Insulin held due to Pt being transported to facility and Pt refused lunch.
[2016-12-29] MEDS ORDERED: INSULIN DETEMIR 100 UNIT/ML CARTRIDGE SQ SCH (22:00)
== END 2016-12-29 14:28 | DRG 871 ==
LOC: ER 15:47 → TELE-TD 18:03 → TELE1 12-25 15:54 → MEDSG1 12-28 13:14
PROVIDERS: ADMIT Internal Medicine; ATTEND Internal Medicine
DX: A41.9 Sepsis, unspecified organism (principal); R65.21 Severe sepsis with septic shock; N17.9 Acute kidney failure, unspecified; N39.0 Urinary tract infection, site not specified; E86.0 Dehydration; E11.9 Type 2 diabetes mellitus without complications; E66.9 Obesity, unspecified; Z68.33 Body mass index [BMI] 33.0-33.9, adult; I48.0 Paroxysmal atrial fibrillation; G20 Parkinson's disease; I25.10 Atherosclerotic heart disease of native coronary artery without angina pectoris; Z86.73 Personal history of transient ischemic attack (TIA), and cerebral infarction without residual deficits; Z98.61 Coronary angioplasty status; B96.4 Proteus (mirabilis) (morganii) as the cause of diseases classified elsewhere; F32.9 Major depressive disorder, single episode, unspecified
CPT/HCPCS: 36415; 71010-TC; 80048-TC; 80076-TC; 81000-TC; 82272-TC; 82378; 82962-TC; 83540-TC; 83605-TC; 83880; 84484-TC; 85025-TC; 85730-TC; 87040-TC; 87081-TC; 87086-TC; 87186-TC; 94799-TC; A4606; J0360; J0696; J1815; J1885; J2060; J2543; J3370; J3490; J7030; J7042; J7050; J7060; Z7610

== ENCOUNTER 2019-04-20 08:56 | Outpatient (CLI) | payer MEDICARE, MEDICAID ==
[~2019-04-20 08:56] MED LIST changes: +APIX5TAB PO; +CHOL200026 PO; +CLON0.5T12 PO; +CRAN3875 PO; +DILT-32 PO; -DILT120C2 PO; +DOCU-141 PO; -DOCU-25 PO; -GABA300C PO; -LACT1CAP39 PO; +PANT40TA2 PO; +POTA20TA83 PO; +SERT50TA PO; +SITA100T PO
== END 2019-04-20 23:59 | disposition home or self-care (01) ==
LOC: CT 08:56
PROVIDERS: ATTEND Internal Medicine
DX: K57.30 Diverticulosis of large intestine without perforation or abscess without bleeding (principal); I25.10 Atherosclerotic heart disease of native coronary artery without angina pectoris; I70.0 Atherosclerosis of aorta; J84.10 Pulmonary fibrosis, unspecified; N28.89 Other specified disorders of kidney and ureter; M47.815 Spondylosis without myelopathy or radiculopathy, thoracolumbar region; I11.0 Hypertensive heart disease with heart failure; I50.9 Heart failure, unspecified; E11.9 Type 2 diabetes mellitus without complications; F41.9 Anxiety disorder, unspecified; K21.9 Gastro-esophageal reflux disease without esophagitis; Z90.49 Acquired absence of other specified parts of digestive tract

== ENCOUNTER 2020-08-01 08:49 | Inpatient (IN) | payer MEDICARE, OTHER ==
[~2020-08-01] VITALS: Ht 165.1 cm; Wt 68.9 kg
[~2020-08-01 08:49] MED LIST changes: -CLON0.5T12 PO; +CLON0.5T4 PO; -ISOS30TA6 PO; +ISOS30TA86 PO; -MELA3TAB PO; +MELA3TAB41 PO
--- NOTE | 2020-08-01 08:49 | NUR ---
PT WILLIAN FROM [facility] C/O MORE ALTERED THAN USUAL FOR 1 WEEK. PT IS AAOX1, NOT IN RESPIRATORY DISTRESS, HOOKED TO REMEDIAL TEACHER, KEPT RESTED AND COMFORTABLE. WILL CONTINUE TO MONITOR.
--- NOTE | 2020-08-01 08:53 | NUR ---
AT BEDSIDE FOR EVAL.
--- NOTE | 2020-08-01 09:00 | NUR ---
IV LINE ESTABLISHED BLOOD DRAWN AND SENT TO LAB.
[2020-08-01] MEDS ORDERED: ONDANSETRON HCL/PF 4 MG/2 ML VIAL ONE (09:03)
[2020-08-01] MEDS ORDERED: MORPHINE SULFATE INJ 4 MG/ML DISP.SYRIN ONE (09:03)
--- NOTE | 2020-08-01 09:15 | NUR ---
URINE SPECIMEN COLLECTED AND SENT TO LAB.
--- NOTE | 2020-08-01 09:25 | NUR ---
DOCUMENT REVIEW SPECIALIST AT BEDSIDE FOR XRAY.
[2020-08-01] MEDS ORDERED: MORPHINE SULFATE INJ 2 MG/ML DISP.SYRIN IV ONE (09:30)
[2020-08-01] MEDS ORDERED: ONDANSETRON HCL/PF 4 MG/2 ML VIAL IVP ONE (09:30)
[2020-08-01] MEDS ORDERED: IV NS 0.9% 1,000 ML BAG IV ONE ×2 (09:30→10:30)
[2020-08-01 09:39] LABS: BASOPHILS % (AUTO) 0.5 % (0.0-2.0); EOSINOPHILS % (AUTO) 3.3 % (0.0-6.0); HEMATOCRIT 27 % (33-45); HEMOGLOBIN 8.6 g/dL (11.5-14.8); LYMPHOCYTES # (AUTO) 2.3 /CMM (0.8-4.8); LYMPHOCYTES % (AUTO) 26.2 % (20.0-44.0); MEAN CORPUSCULAR HGB CONC 32 g/dl (31.0-36.0); MEAN CORPUSCULAR VOLUME 88 fL (82-100); MONOCYTES # (AUTO) 0.4 /CMM (0.1-1.30); MONOCYTES % (AUTO) 4.8 % (2.0-12.0); NEUTROPHILS # (AUTO) 5.6 /CMM (1.8-8.9); NEUTROPHILS % (AUTO) 65.2 % (43.0-81.0); PLATELET COUNT (AUTO) 482 /CMM (150-450); RED BLOOD CELL COUNT(AUTO) 3.11 MIL/uL (4.0-5.2); WHITE BLOOD COUNT (AUTO) 8.6 K/uL (4.3-11.0)
--- NOTE | 2020-08-01 09:42 | NUR ---
PT IS WHEELED TO CT SCAN VIA [facility].
[2020-08-01 10:00] LABS: BILIRUBIN,URINE SMALL (NEGATIVE); COLOR,URINE AMBER (YELLOW); LEUKOCYTE ESTERASE ,URINE LARGE (NEGATIVE); NITRITE, URINE POSITIVE (NEGATIVE); PH,URINE 6.5 (5.0-8.0); PROTEIN,URINE 100 mg/dl (NEGATIVE); UGLUCOSE NEGATIVE (NEGATIVE); UROBILINOGEN,URINE 0.2 EU/dL (0.2)
[2020-08-01 10:09] LABS: CALCIUM, SERUM 9.7 mg/dL (8.5-10.1); CARBON DIOXIDE 18 mmol/L (21-32); CHLORIDE 103 mmol/L (98-107); CREATININE 3.4 mg/dL (0.6-1.3); GLUCOSE 91 mg/dL (74-106); POTASSIUM 5.6 mmol/L (3.5-5.1); SODIUM SERUM 135 mmol/L (136-145)
[2020-08-01 10:12] LABS: UREA NITROGEN, BLOOD 86 mg/dL (7-18)
[2020-08-01 10:13] LABS: ALANINE AMINOTRANSFERASE 8 U/L (12-78); ALBUMIN 2.2 g/dL (3.4-5.0); ALKALINE PHOSPHATASE 202 U/L (46-116); ASPARTATE AMINOTRANSFERASE 34 U/L (15-37); BILIRUBIN,DIRECT 0.1 mg/dL (0.0-0.2); BILIRUBIN,TOTAL 0.3 mg/dL (0.2-1.0); LIPASE 302 U/L (73-393); TOTAL PROTEIN, SERUM 6.1 g/dL (6.4-8.2)
--- NOTE | 2020-08-01 10:14 | NUR ---
AT BEDSIDE FOR EVAL.
[2020-08-01] MEDS ORDERED: CEFTRIAXONE 1GM BAG (ER ONLY) 50 ML IV ONE (10:18)
[2020-08-01] MEDS ORDERED: ACETAMINOPHEN 325 MG TABLET PO PRN (10:30)
[2020-08-01] MEDS ORDERED: PANTOPRAZOLE 40 MG TABLET.DR PO ONE (10:30)
[2020-08-01] MEDS: CARBIDOPA/LEVODOPA 25/250 MG 1 UDTAB PO SCH ×4 (10:30→20:54)
[2020-08-01] MEDS: METOPROLOL TARTRATE 50 MG TABLET PO SCH ×2 (10:30→16:51)
[2020-08-01] MEDS ORDERED: DEXTROSE 50%-WATER 50 ML DISP.SYRIN IV PRN (10:30)
[2020-08-01] MEDS ORDERED: ONDANSETRON HCL/PF 4 MG/2 ML VIAL IV PRN (10:30)
[2020-08-01] MEDS: SERTRALINE HCL 50 MG TABLET PO SCH (10:30)
[2020-08-01] MEDS ORDERED: IMIPENEM/CILASTATIN 500 MG in IV NS 0.9% 100 ML IV SCH (10:30)
[2020-08-01] MEDS ORDERED: CEFTRIAXONE 1GM BAG (ER ONLY) 1 GM/50 ML PIGGYBACK IV ONE (10:30)
[2020-08-01 10:32] LABS: RBC,URINE TOO NUMEROUS TO COUN /HPF (0-2); WBC,URINE TOO NUMEROUS TO COUN /HPF (0-3)
[2020-08-01 10:33] LABS: BACTERIA,URINE Moderate /HPF (None Seen); SQUAMOUS EPITHELIAL CELL,UR Few /HPF (None Seen)
--- NOTE | 2020-08-01 10:50 | NUR ---
room 108
[2020-08-01] MEDS ORDERED: IV NS 0.9% 50 ML IV SCH (11:00)
--- NOTE | 2020-08-01 11:19 | NUR ---
REPORT GIVEN TO GEOVANNI POPE FOR HORACE.
[2020-08-01] MEDS ORDERED: COLL30OI TP (11:23)
[2020-08-01] MEDS ORDERED: MULT-447 PO (11:23)
[2020-08-01] MEDS ORDERED: EPOE1VIA6 SQ (11:23)
[2020-08-01] MEDS ORDERED: FERR325T23 PO (11:23)
[2020-08-01] MEDS ORDERED: CRAN425C6 PO (11:23)
[2020-08-01] MEDS ORDERED: METO25TA20 PO (11:23)
[2020-08-01] MEDS ORDERED: INSU100V11 SQ (11:23)
[2020-08-01] MEDS ORDERED: AMIN30LI2 PO (11:23)
[2020-08-01] MEDS ORDERED: ARIP5TAB10 PO (11:23)
[2020-08-01] MEDS ORDERED: ZINC220C6 PO (11:23)
[2020-08-01] MEDS ORDERED: CHOL10002 PO (11:23)
[2020-08-01] MEDS ORDERED: SODI650T PO (11:23)
[2020-08-01] MEDS ORDERED: POLY17PO4 PO (11:23)
[2020-08-01] MEDS ORDERED: ACET-2605 PO (11:23)
[2020-08-01] MEDS ORDERED: ASCO-352 PO (11:23)
[2020-08-01] MEDS ORDERED: POLY15DR40 EACHEYE (11:23)
[2020-08-01] MEDS ORDERED: MEMA10TA PO (11:23)
[2020-08-01 12:00] VITALS: BP 132/61
[2020-08-01] MEDS: NEPRO VAN 237 ML CAN PO SCH ×2 (12:00→16:51)
--- NOTE | 2020-08-01 12:00 | NUR ---
RN ADMITTING NOTES RECEIVED PATIENT FROM ER, A/OX1, ON ROOM AIR, SPO2 IS 100%, NO SOB NOTED, RESPIRATIONS EVEN AND UNLABORED, NOT FOLLOWING COMMANDS, DISORIENTED, CALM AND RELAXED, NO S/SX OF PAIN OR DISTRESS NOTED. IV LINE PRESENT ON R HAND, G 18, PATENT AND INTACT, FERNANDEZ CATH IN PLACE, DRAINING YELLOW URINE BY GRAVITY, TELE-MONITOR SHOWS CONTROLLED A-FIB. SAFETY MEASURES IN PLACE, HOB ELEVATED, CALL LIGHT IN REACH, WILL CONT TO MONITOR
--- NOTE | 2020-08-01 12:15 | NUR ---
PATIENT IS NON VERBAL, NON FOLLOWING COMMANDS, WILL HOLD PO MEDICATIONS
[2020-08-01] MEDS: IV NS 0.9% 1,000 ML IV PRN (12:59)
[2020-08-01] MEDS: MEROPENEM 500 MG in IV NS 0.9% 50 ML IV SCH (13:09)
[2020-08-01] MEDS: BLOOD SUGAR DIAGNOSTIC 1 EACH STRIP IN SCH ×3 (15:31→21:11)
[2020-08-01 16:00] VITALS: BP 103/52
[2020-08-01] MEDS ORDERED: IV D5/0.45 NACL 1,000 ML IV ONE (18:00)
--- NOTE | 2020-08-01 18:53 | NUR ---
RN CLOSING NOTES PATIENT REMAINS IN BED, A/OX1, WAS ABLE TO EAT SMALL BITES OF FOOD, ASPIRATION PRECAUTIONS IMPLEMENTED, HOB 45 DEGREE, IV MEDICATIONS RUNNING, WILL ENDORSE TO PM SHIFT RN FOR HORACE
--- NOTE | 2020-08-01 19:46 | NUR ---
RN NOTES PATIENT RESTING IN BED WITH HOB ELEVATED, A/OX1. ON ROOM AIR, O2 SAT 100%. NO S/S OF ANY DISTRESS.TELE MONITOR ON, CONTROLLED A-FIB. WITH FERNANDEZ CATH DRAINING YELLOW URINE TO GRAVITY. WITH IV ACCESS ON RIGHT HAND WITH D5 1/2 NS @ 90CC/HR, INFUSING WELL. BED LOCKED AND IN LOWEST POSITION. SIDE RAILS UP X2. CALL LIGHT WITHIN REACH. SAFETY MEASURES IN PLACE. WILL CONTINUE TO MONITOR.
[2020-08-01 20:00] VITALS: BP 108/66
[2020-08-01] MEDS: HEPARIN SODIUM, PORCINE 5000 UNITS/1 ML VIAL SQ SCH (20:48)
[2020-08-01] MEDS: *INSULIN ASPART NOVOLOG 100 UNIT/ML CARTRIDGE SQ PRN (21:14)
[2020-08-02] VITALS (12 sets, daily range): BP systolic 96–141; BP diastolic 46–69
[2020-08-02] MEDS: MEROPENEM 500 MG in IV NS 0.9% 50 ML IV SCH ×2 (01:09→12:50)
[2020-08-02] MEDS: IV NS 0.9% 1,000 ML IV PRN ×2 (05:31→18:50)
--- NOTE | 2020-08-02 06:29 | NUR ---
RN NOTES PATIENT A/OX1. ON ROOM AIR, O2 SAT 100%. NO S/S OF ANY DISTRESS.TELE MONITOR ON, CONTROLLED A-FIB. WITH FERNANDEZ CATH DRAINING YELLOW URINE TO GRAVITY, OUT PUT 550. WITH IV ACCESS ON RIGHT HAND WITH NS @80CC/HR, INFUSING WELL. BED LOCKED AND IN LOWEST POSITION. SIDE RAILS UP X2. CALL LIGHT WITHIN REACH. SAFETY MEASURES IN PLACE. WILL ENDORSE TO ONCOMING SHIFT.
[2020-08-02 06:53] LABS: BASOPHILS % (AUTO) 0.6 % (0.0-2.0); EOSINOPHILS % (AUTO) 3.7 % (0.0-6.0); HEMATOCRIT 24 % (33-45); HEMOGLOBIN 7.8 g/dL (11.5-14.8); LYMPHOCYTES # (AUTO) 1.7 /CMM (0.8-4.8); LYMPHOCYTES % (AUTO) 27.2 % (20.0-44.0); MEAN CORPUSCULAR HGB CONC 33 g/dl (31.0-36.0); MEAN CORPUSCULAR VOLUME 85 fL (82-100); MONOCYTES # (AUTO) 0.3 /CMM (0.1-1.30); MONOCYTES % (AUTO) 5.1 % (2.0-12.0); NEUTROPHILS # (AUTO) 3.9 /CMM (1.8-8.9); NEUTROPHILS % (AUTO) 63.4 % (43.0-81.0); PLATELET COUNT (AUTO) 383 /CMM (150-450); RED BLOOD CELL COUNT(AUTO) 2.79 MIL/uL (4.0-5.2); WHITE BLOOD COUNT (AUTO) 6.1 K/uL (4.3-11.0)
--- NOTE | 2020-08-02 07:20 | NUR ---
RN OPENING NOTES PATIENT RECIEVED IN BED WITH HOB ELEVATED, A/OX1. PATIENT IS ON ROOM AIR, O2 SAT 100%. NO S/S OF ANY DISTRESS. TELE MONITOR ON, CONTROLLED A-FIB. WITH FERNANDEZ CATH DRAINING YELLOW URINE TO GRAVITY. IV ACCESS ON RIGHT HAND WITH NS @ 80 ML/HR, INFUSING WELL. SAFETY MEASURES IMPLEMNTED, BED LOCKED AND IN LOWEST POSITION, SIDE RAILS UP X2, CALL LIGHT WITHIN REACH. WILL CONTINUE TO MONITOR AND PROVIDE CARE THROUGHOUT SHIFT.
[2020-08-02 07:21] LABS: ALANINE AMINOTRANSFERASE 7 U/L (12-78); ALBUMIN 1.9 g/dL (3.4-5.0); ALKALINE PHOSPHATASE 177 U/L (46-116); ASPARTATE AMINOTRANSFERASE 23 U/L (15-37); BILIRUBIN,TOTAL 0.2 mg/dL (0.2-1.0); CALCIUM, SERUM 8.7 mg/dL (8.5-10.1); CARBON DIOXIDE 18 mmol/L (21-32); CHLORIDE 106 mmol/L (98-107); CREATININE 3.2 mg/dL (0.6-1.3); GLUCOSE 170 mg/dL (74-106); MAGNESIUM 1.9 mg/dL (1.8-2.4); PHOSPHORUS 4.4 mg/dL (2.5-4.9); POTASSIUM 4.6 mmol/L (3.5-5.1); SODIUM SERUM 136 mmol/L (136-145); TOTAL PROTEIN, SERUM 5.4 g/dL (6.4-8.2); UREA NITROGEN, BLOOD 77 mg/dL (7-18)
[2020-08-02 07:25] LABS: CREATINE KINASE, TOTAL 59 U/L (26-192)
[2020-08-02 07:26] LABS: IRON, SERUM 29 ug/dl (50-175); TOTAL IRON BINDING CAPACITY 187 ug/dl (250-450)
[2020-08-02] MEDS: BLOOD SUGAR DIAGNOSTIC 1 EACH STRIP IN SCH ×4 (07:30→21:41)
[2020-08-02] MEDS: HEPARIN SODIUM, PORCINE 5000 UNITS/1 ML VIAL SQ SCH ×2 (09:00→20:45)
[2020-08-02] MEDS: NEPRO VAN 237 ML CAN PO SCH ×3 (09:24→17:44)
[2020-08-02] MEDS: CARBIDOPA/LEVODOPA 25/250 MG 1 UDTAB PO SCH ×4 (09:29→20:43)
[2020-08-02] MEDS: SERTRALINE HCL 50 MG TABLET PO SCH (09:30)
[2020-08-02] MEDS: METOPROLOL TARTRATE 50 MG TABLET PO SCH ×2 (09:31→16:36)
[2020-08-02] MEDS: INSULIN ASPART/LISPRO 100 UNIT/ML CARTRIDGE SQ PRN ×3 (09:43→16:52)
--- NOTE | 2020-08-02 09:47 | NUR ---
HEPARIN HELD DUE TO HEMGLOBIN OF 7.8. PREVIOUS HEMOGLOBIN = 8.6. WILL CONTINUE TO MONITOR.
[2020-08-02] MEDS: Z GUARD REMEDY 2 OZ OINT TP SCH (11:30)
[2020-08-02] MEDS: DAKINS QUARTER STRENGTH (0.125%) 480 ML BOTTLE TOP SCH (11:30)
--- NOTE | 2020-08-02 11:32 | NUR ---
WOUND CARE CONSULT: PT PRESENTS WITH STAGE 3 ULCER TO SACRUM, PRESENT ON ADMISSION. RECOMMENDATIONS MADE FOR SKIN PROTECTION AND WOUND CARE. DISCUSSED WITH NURSING STAFF. DISCUSSED WITH DR RAMOS. SURGICAL CONSULT NOT NEEDED AT THIS TIME UNLESS/UNTIL WOUND NEEDS DEBRIDEMENT. PT IS ON ANTON ISOFLEX LOW AIRLOSS BED. IN AGREEMENT WITH PLAN OF CARE. Addendum: 08/02/20 at 1134 by CORRY ORDAZ WNDNU Amended: Links added.
--- NOTE | 2020-08-02 19:00 | NUR ---
RN CLOSING NOTES PATIENT IN BED WITH HOB ELEVATED, A/OX1. PATIENT IS ON ROOM AIR, O2 SAT 100%. NO S/S OF ANY DISTRESS. TELE MONITOR ON, CONTROLLED A-FIB 70'S. FERNANDEZ CATH DRAINING YELLOW URINE TO GRAVITY. SLIGHT BLOOD IN CATHETER NOTED. PATIENT GIVEN 1 UNIT OF RBC AND TOLERATED WELL. PRN TYLENOL GIVEN FOR LOWER BACK PAIN IN SACRAL REGION WHERE WOUND IS LOCATED. MEDICATION HELPED ALLEVIATED PAIN. IV ACCESS ON RIGHT HAND WITH NS @ 80 ML/HR, INFUSING WELL. PATIENT TELE REMOVED AND WILL BE DOWNGRADED TO MEDSURG. SAFETY MEASURES IMPLEMNTED, BED LOCKED AND IN LOWEST POSITION, SIDE RAILS UP X2, CALL LIGHT WITHIN REACH. WILL ENDORSE CONTINUATION OF CARE TO UPCOMING SHIFT.
--- NOTE | 2020-08-02 19:25 | NUR ---
RN OPENING NOTES: RECEIVED NON VERBAL PT N BED SLEEPING COMFORTABLY. PATIENT IN NO S/SX OF ACUTE DISTRESS AT THIS TIME. NO SOB NOTED. PATIENT'S BREATHING IS EVEN AND UNLABORED. PATIENT IS ON ROOM AIR ; TOLERATING WELL; O2 SAT @ 99% AT THE TIME OF RECEIVED. PATIENT ON TELE MONITORING READING SINUS RHYTHM AT THE TIME OF RECEIVED. PATIENT CURRENTLY ON NPO. NOTED IV SITE ON L HAND #18 PATENT, INTACT AND FLUSHING WELL; NO S/S OF INFECTION OR INFILTRATION. WITH IV FLUID RUNNING ORDERED. FERNANDEZ CATH IN PLACE, MODERATE URINE OUTPUT NOTED . SAFETY MEASURES HAVE BEEN PROVIDED AND IMPLEMENTED. PATIENT BED ALARM IS ON. HEAD OF BED ELEVATED. BED IS LOCKED, IN LOWEST POSITION AND SIDE RAILS UP. CALL LIGHT WITHIN REACH OF THE PATIENT. APPLICABLE ISOLATION PRECAUTIONS IN PLACE. WILL CONTINUE TO MONITOR AND REASSESS FOR ANY CHANGES AND WILL CARRY OUT ANY ONGOING AND ACTIVE MD ORDER. Addendum: 08/03/20 at 0405 by DAVID CASTILLO RN PLS DISREGARD WRONG PATIENT/ENTRY OF NOTES.
--- NOTE | 2020-08-02 19:25 | NUR ---
RN OPENING NOTES: RECEIVED PT A/OX 1 IN BED SLEEPING COMFORTABLY. PATIENT IN NO S/SX OF ACUTE DISTRESS AT THIS TIME. NO SOB NOTED. PATIENT'S BREATHING IS EVEN AND UNLABORED. PATIENT ON ROOM AND SATING @97% O2 SAT AT THE TIME OF RECEIVED . PATIENT ON TELE MONITORING READING SINUS RHYTHM HR IS @71 AT THE TIME OF RECEIVED. PATIENT ON MECHANICAL SOFT DIET; TOLERATES WELL. NOTED IV SITE ON R HAND # 18 ; PATENT, INTACT AND FLUSHING WELL; NO S/S OF INFECTION OR INFILTRATION. WITH IV FLUID RUNNING ORDERED. SAFETY MEASURES HAVE BEEN PROVIDED AND IMPLEMENTED. PATIENT BED ALARM IS ON. HEAD OF BED ELEVATED. BED IS LOCKED, IN LOWEST POSITION AND SIDE RAILS UP. CALL LIGHT WITHIN REACH OF THE PATIENT. APPLICABLE ISOLATION PRECAUTIONS IN PLACE. WILL CONTINUE TO MONITOR AND REASSESS FOR ANY CHANGES AND WILL CARRY OUT ANY ONGOING AND ACTIVE MD ORDER.
[2020-08-02] MEDS: *INSULIN ASPART NOVOLOG 100 UNIT/ML CARTRIDGE SQ PRN (21:41)
--- NOTE | 2020-08-02 21:42 | NUR ---
RN NOTES ACCU CHECK DONE; 129MG/DL; NO INSULIN COVERAGE PER SLIDING SCALE. AUTO DESIGN DETAILER MADE AWARE. WILL CONTINUE TO MONITOR AND ASSESS THROUGHOUT THE SHIFT.
--- NOTE | 2020-08-02 23:00 | NUR ---
RN NOTES PATIENT REMAINS IN NO ACUTE RESPIRATORY DISTRESS AT THIS TIME, NO CHANGES TO CONDITION/STATUS. WELDER SETTER RESISTANCE MACHINE WELL AWARE. WILL CONTINUE TO MONITOR AND REASSESS FOR ANY CHANGES THROUGHOUT THE SHIFT
[2020-08-03] MEDS: MEROPENEM 500 MG in IV NS 0.9% 50 ML IV SCH ×2 (00:10→12:12)
--- NOTE | 2020-08-03 03:00 | NUR ---
RN NOTES NO CHANGES IN PATIENT CONDITION AT THIS TIME PATIENT VITALS STABLE, NO SIGNS OF ACUTE RESPIRATORY DISTRESS. PATIENT STILL IN BED SLEEPING COMFORTABLY. NO COMPLAINTS OF PAIN OR ANY DISCOMFORT AT THIS TIME. WILL CONTINUE TO MONITOR AND REASSESS FOR ANY CHANGES THROUGHOUT THE SHIFT.
[2020-08-03 05:00] VITALS: BP 139/69
--- NOTE | 2020-08-03 06:41 | NUR ---
RN CLOSING NOTE: PATIENT REMAINS IN ROOM IN NO SIGNS OF RESPIRATORY DISTRESS. SAFETY MEASURES IMPLEMENTED, BED IN LOWEST POSITION, LOCKED, SIDE RAILS UP, CALL LIGHT WITHIN REACH. ALL NEEDS AND ORDERS ADDRESSED DURING THE SHIFT. IV ACCESS MAINTAINED INTACT, SECURED AND FLUSHING WELL. ALL DUE MEDS GIVEN ORDERED & SCHEDULED ; PATIENT TOLERATED WELL. PATIENT KEPT CLEAN AND COMFORTABLE WITHIN THE SHIFT. PATIENT ENDORSED TO INCOMING SHIFT RN WITH STABLE VITAL SIGN AND FOR CONTINUITY OF CARE.
[2020-08-03 07:25] LABS: BASOPHILS % (AUTO) 0.3 % (0.0-2.0); EOSINOPHILS % (AUTO) 3.9 % (0.0-6.0); HEMATOCRIT 30 % (33-45); HEMOGLOBIN 9.9 g/dL (11.5-14.8); LYMPHOCYTES # (AUTO) 1.4 /CMM (0.8-4.8); LYMPHOCYTES % (AUTO) 17.4 % (20.0-44.0); MEAN CORPUSCULAR HGB CONC 33 g/dl (31.0-36.0); MEAN CORPUSCULAR VOLUME 86 fL (82-100); MONOCYTES # (AUTO) 0.3 /CMM (0.1-1.30); MONOCYTES % (AUTO) 4.1 % (2.0-12.0); NEUTROPHILS # (AUTO) 6.2 /CMM (1.8-8.9); NEUTROPHILS % (AUTO) 74.3 % (43.0-81.0); PLATELET COUNT (AUTO) 420 /CMM (150-450); RED BLOOD CELL COUNT(AUTO) 3.53 MIL/uL (4.0-5.2); WHITE BLOOD COUNT (AUTO) 8.3 K/uL (4.3-11.0)
--- NOTE | 2020-08-03 07:30 | NUR ---
MS/RN OPENING NOTE Received patient resting in bed, A&O x 1, easily arousable to tactile and verbal stimulation. No s/s of pain/discomfort at this time. Breathing even and non-labored on RA, no SOB noted. No respiratory or cardiac distress noted. IV access noted on L hand #22, patent and intact, and running NS @ 80 ml/hr. Camp[place] in place, draining clear yellow urine well. Bed locked to its lowest position, side rails x 2 up, bed alarm on. Will continue with current medical management.
[2020-08-03] MEDS: NEPRO VAN 237 ML CAN PO SCH ×3 (07:58→17:23)
[2020-08-03] MEDS: BLOOD SUGAR DIAGNOSTIC 1 EACH STRIP IN SCH ×4 (07:58→22:00)
[2020-08-03 08:00] VITALS: BP 162/62
[2020-08-03 08:07] LABS: PTH, INTACT 40 pg/mL (15-65)
[2020-08-03 08:11] LABS: CARBON DIOXIDE 16 mmol/L (21-32); CHLORIDE 107 mmol/L (98-107); GLUCOSE 127 mg/dL (74-106); SODIUM SERUM 138 mmol/L (136-145); UREA NITROGEN, BLOOD 70 mg/dL (7-18)
[2020-08-03] MEDS: CARBIDOPA/LEVODOPA 25/250 MG 1 UDTAB PO SCH ×4 (08:22→21:53)
[2020-08-03] MEDS: METOPROLOL TARTRATE 50 MG TABLET PO SCH ×2 (08:22→17:21)
[2020-08-03] MEDS: SERTRALINE HCL 50 MG TABLET PO SCH (08:22)
[2020-08-03] MEDS: HEPARIN SODIUM, PORCINE 5000 UNITS/1 ML VIAL SQ SCH ×2 (08:23→21:54)
[2020-08-03] MEDS: Z GUARD REMEDY 2 OZ OINT TP SCH (08:24)
[2020-08-03] MEDS: DAKINS QUARTER STRENGTH (0.125%) 480 ML BOTTLE TOP SCH (08:25)
[2020-08-03 10:07] LABS: *SPE A/G RATIO 0.8 (0.7-1.7); *SPE ALBUMIN 2.2 g/dL (2.9-4.4); *SPE ALPHA-1-GLOBULIN 0.4 g/dL (0.0-0.4); *SPE ALPHA-2-GLOBULIN 0.8 g/dL (0.4-1.0); *SPE BETA GLOBULIN 0.8 g/dL (0.7-1.3); *SPE GLOBULIN, TOTAL 2.6 g/dL (2.2-3.9); *SPE M-SPIKE Not Observed g/dL (Not Observed); *SPEGAMMA GLOBULIN 0.7 g/dL (0.4-1.8)
--- NOTE | 2020-08-03 10:37 | NUR ---
MS/RN NOTE Patient transferred safely via bed to clean room 309-2. Report given to Salo GALARZA for HORACE Addendum: 08/03/20 at 1040 by ARCHANA PENNINGTON RN Brought along with all medications and chart
[2020-08-03 11:00] VITALS: BP 162/87
--- NOTE | 2020-08-03 11:00 | NUR ---
BOILER OR ENGINE OPERATOR NOTE RECEIVED PT IN ROOM 309 BED 2. RECEIVED REPORT FROM ARCHANA. PT IS A/O X2, ROMANIAN SPEAKING, BUT ONLY ABLE TO MAKE SOME NEEDS KNOWN. V/S STABLE PT CURRENTLY ON BEDREST. PT HAS A FERNANDEZ CATH PRESENT. STAGE 3 PRESSURE ULCER PRESENT IN SACRUM. HL PRESENT ON L HAND. SAFETY MEASURES IMPLEMENTED. SIDE RAILS RAISED. BED LOWERED. CALL LIGHT WITHIN REACH. WILL CONTINUE TO MONITOR.
[2020-08-03] MEDS: INSULIN ASPART/LISPRO 100 UNIT/ML CARTRIDGE SQ PRN (11:58)
[2020-08-03 16:00] VITALS: BP 152/75
[2020-08-03 17:44] VITALS: BP 152/75
[2020-08-03] MEDS ORDERED: CEFEPIME 1 GM in IV D5W 50 ML IV SCH (18:00)
--- NOTE | 2020-08-03 18:44 | NUR ---
RN CLOSING NOTE PT IS A/O X2, MACEDONIAN SPEAKING, BUT ONLY ABLE TO MAKE SOME NEEDS KNOWN. CURRENTLY ON RA WITH NO SOB OR RESPIRATORY DISTRESS PRESENT. V/S STABLE. PT CURRENTLY ON BEDREST. PT HAS A FERNANDEZ CATH PRESENT. STAGE 3 PRESSURE ULCER PRESENT IN SACRUM. HL PRESENT ON L HAND. SAFETY MEASURES IMPLEMENTED. SIDE RAILS RAISED. BED LOWERED. CALL LIGHT WITHIN REACH. ROUTINE MEDS GIVEN. REPORT GIVEN TO NIGHT NURSE.
[2020-08-03] MEDS: HYDROCODONE/APAP 5/325MG TABLET PO SCH (18:56)
[2020-08-03] MEDS ORDERED: VANCOMYCIN 1 GM in IV D5W 250 ML IV SCH (19:00)
[2020-08-03 20:00] VITALS: BP 148/73
--- NOTE | 2020-08-03 22:12 | NUR ---
BLOOD SUGAR UTAUIYR=900, NO INSULIN GIVEN.
[2020-08-04] MEDS: PIPERACILLIN /TAZOBACTAM 2.25 G in IV D5W 50 ML IV SCH ×5 (00:03→23:04)
[2020-08-04] MEDS: Z GUARD REMEDY 2 OZ OINT TP PRN (03:10)
[2020-08-04 06:31] LABS: BASOPHILS % (AUTO) 0.4 % (0.0-2.0); EOSINOPHILS % (AUTO) 2.6 % (0.0-6.0); HEMATOCRIT 30 % (33-45); HEMOGLOBIN 9.7 g/dL (11.5-14.8); LYMPHOCYTES # (AUTO) 1.5 /CMM (0.8-4.8); LYMPHOCYTES % (AUTO) 17.8 % (20.0-44.0); MEAN CORPUSCULAR HGB CONC 33 g/dl (31.0-36.0); MEAN CORPUSCULAR VOLUME 87 fL (82-100); MONOCYTES # (AUTO) 0.3 /CMM (0.1-1.30); MONOCYTES % (AUTO) 3.7 % (2.0-12.0); NEUTROPHILS # (AUTO) 6.3 /CMM (1.8-8.9); NEUTROPHILS % (AUTO) 75.5 % (43.0-81.0); PLATELET COUNT (AUTO) 379 /CMM (150-450); RED BLOOD CELL COUNT(AUTO) 3.43 MIL/uL (4.0-5.2); WHITE BLOOD COUNT (AUTO) 8.3 K/uL (4.3-11.0)
[2020-08-04] MEDS: BLOOD SUGAR DIAGNOSTIC 1 EACH STRIP IN SCH ×4 (06:47→21:16)
--- NOTE | 2020-08-04 06:48 | NUR ---
MS RN CLOSING NOTES: PT IN BED, ASLEEP, EASILY AROUSABLE, NO S/S OF DISTRESS NOTED. NOT IN PAIN. HOB ELEVATED AT ALL TIMES. BLOOD SUGAR TODAY IS 120, NO COVERAGE GIVEN. BED IN LOWEST AND LOCKED POSITION. BED ALARM ON. SACRAL WOUND TREATMENT AND DRESSING CHANGED DONE TODAY.
[2020-08-04 07:01] LABS: CALCIUM, SERUM 9.3 mg/dL (8.5-10.1); CARBON DIOXIDE 16 mmol/L (21-32); CHLORIDE 108 mmol/L (98-107); CREATININE 2.8 mg/dL (0.6-1.3); GLUCOSE 142 mg/dL (74-106); POTASSIUM 4.8 mmol/L (3.5-5.1); SODIUM SERUM 138 mmol/L (136-145); UREA NITROGEN, BLOOD 67 mg/dL (7-18)
[2020-08-04 08:00] VITALS: BP 123/70
[2020-08-04] MEDS: METOPROLOL TARTRATE 50 MG TABLET PO SCH ×2 (09:00→16:26)
[2020-08-04] MEDS: HYDROCODONE/APAP 5/325MG TABLET PO SCH ×2 (09:00→16:26)
--- NOTE | 2020-08-04 09:00 | NUR ---
m/s bituminous distributor operator: notes pt appears comfortable. no distress noted. eyes close, but easily arousable.
[2020-08-04] MEDS: HEPARIN SODIUM, PORCINE 5000 UNITS/1 ML VIAL SQ SCH ×2 (09:03→21:16)
[2020-08-04] MEDS: NEPRO VAN 237 ML CAN PO SCH ×3 (09:04→16:26)
[2020-08-04] MEDS: SERTRALINE HCL 50 MG TABLET PO SCH (09:04)
[2020-08-04] MEDS: CARBIDOPA/LEVODOPA 25/250 MG 1 UDTAB PO SCH ×4 (09:04→21:16)
[2020-08-04] MEDS: Z GUARD REMEDY 2 OZ OINT TP SCH (09:05)
[2020-08-04] MEDS: DAKINS QUARTER STRENGTH (0.125%) 480 ML BOTTLE TOP SCH (09:05)
[2020-08-04] MEDS: INSULIN ASPART/LISPRO 100 UNIT/ML CARTRIDGE SQ PRN ×2 (11:48→17:21)
[2020-08-04] MEDS: IV NS 0.9% 1,000 ML IV PRN (11:50)
--- NOTE | 2020-08-04 11:50 | NUR ---
m/s computer support technician: notes pt refusing her lunch at this time. [id number], held insulin. will continue to monitor.
--- NOTE | 2020-08-04 11:50 | NUR ---
m/s administrative clerk: notes pt refusing her lunch at this time. er=[id number], held insulin. will continue to monitor. Addendum: 08/04/20 at 1156 by KELLY HERNANDEZ RN above charting error, for primary nurse to chart.
--- NOTE | 2020-08-04 14:35 | NUR ---
m/s voip network engineer: notes tx to sacral wound done. turned and repositioned. kept comfortable. will continue to monitor.
[2020-08-04 16:00] VITALS: BP 163/77
--- NOTE | 2020-08-04 16:25 | NUR ---
m/s director supplier quality: notes pt resting comfortable in bed. appears sleepy, but arousable. kristina held. will continue to monitor.
[2020-08-04] MEDS: CITRIC ACID/SODIUM CITRATE (BICITRA)15 ML UDC PO SCH (17:23)
[2020-08-04] MEDS ORDERED: HYDROCODONE/APAP 5/325MG TABLET PO PRN (17:30)
--- NOTE | 2020-08-04 17:30 | NUR ---
m/s coordinator of library services: md visit seen and examined by dr. mckeon. pt for d'c planning to snf. when md talked to pt, pt agreed to go to snf of her choice. dr. mckeon also called the son to discuss hospice care. case management to make arrangement once son agreed.
--- NOTE | 2020-08-04 19:15 | NUR ---
m/s fixed route bus operator: notes bedside report given to gosia (rn) for continuity of care.
--- NOTE | 2020-08-04 19:50 | NUR ---
MS RN NOTE: PATIENT RESTING IN BED, NO ACUTE DISTRESS NOTED. BREATHING EVEN AND UNLABORED, NO SOB NOTED. IV TO RIGHT HAND IN PLACE, INFUSING NS AT 70ML/HR. FERNANDEZ CATHETER IN PLACE, EMPTY AT THIS TIME. NO S/S OF HYPER/HYPOGLYCEMIA NOTED. BED LOCKED AND IN LOWEST POSITION, CALL LIGHT IN REACH. WILL CONTINUE TO MONITOR THROUGHOUT SHIFT.
[2020-08-04 20:20] VITALS: BP 118/73
[2020-08-04] MEDS: *INSULIN ASPART NOVOLOG 100 UNIT/ML CARTRIDGE SQ PRN (22:24)
--- NOTE | 2020-08-04 22:25 | NUR ---
MS RN NOTE: PATIENT BLOOD SUGAR LEVEL 168MG/DL, TO RECEIVE 3 UNITS OF INSULIN PER SLIDING SCALE. NO S/S OF HYPER/HYPOGLYCEMIA NOTED. WILL CONTINUE TO MONITOR THROUGHOUT SHIFT.
[2020-08-05] MEDS: IV NS 0.9% 1,000 ML IV PRN (05:01)
[2020-08-05] MEDS: PIPERACILLIN /TAZOBACTAM 2.25 G in IV D5W 50 ML IV SCH ×3 (05:02→17:37)
--- NOTE | 2020-08-05 06:20 | NUR ---
MS RN NOTE: PATIENT RESTING IN BED, NO ACUTE DISTRESS NOTED. BREATHING EVEN AND UNLABORED, NO SOB NOTED. IV TO RIGHT HAND IN PLACE, INFUSING NS AT 70ML/HR. FERNANDEZ CATHETER IN PLACE, DRAINED 700ML OF YELLOW URINE. PATIENT BLOOD SUGAR LEVEL 123MG/DL, NO INSULIN NEEDED PER SLIDING SCALE. NO S/S OF HYPER/HYPOGLYCEMIA NOTED. BED LOCKED AND IN LOWEST POSITION, CALL LIGHT IN REACH. WILL ENDORSE TO DAY NURSE TO CONTINUE WITH PLAN OF CARE.
[2020-08-05] MEDS: BLOOD SUGAR DIAGNOSTIC 1 EACH STRIP IN SCH ×4 (06:31→22:42)
[2020-08-05 06:38] LABS: BASOPHILS % (AUTO) 0.3 % (0.0-2.0); EOSINOPHILS % (AUTO) 3.1 % (0.0-6.0); HEMATOCRIT 29 % (33-45); HEMOGLOBIN 9.6 g/dL (11.5-14.8); LYMPHOCYTES # (AUTO) 1.7 /CMM (0.8-4.8); LYMPHOCYTES % (AUTO) 17.2 % (20.0-44.0); MEAN CORPUSCULAR HGB CONC 33 g/dl (31.0-36.0); MEAN CORPUSCULAR VOLUME 87 fL (82-100); MONOCYTES # (AUTO) 0.5 /CMM (0.1-1.30); MONOCYTES % (AUTO) 5.1 % (2.0-12.0); NEUTROPHILS # (AUTO) 7.3 /CMM (1.8-8.9); NEUTROPHILS % (AUTO) 74.3 % (43.0-81.0); PLATELET COUNT (AUTO) 351 /CMM (150-450); RED BLOOD CELL COUNT(AUTO) 3.35 MIL/uL (4.0-5.2); WHITE BLOOD COUNT (AUTO) 9.9 K/uL (4.3-11.0)
[2020-08-05 07:10] LABS: CARBON DIOXIDE 17 mmol/L (21-32); CHLORIDE 110 mmol/L (98-107); CREATININE 2.7 mg/dL (0.6-1.3); GLUCOSE 133 mg/dL (74-106); POTASSIUM 4.7 mmol/L (3.5-5.1); SODIUM SERUM 141 mmol/L (136-145); UREA NITROGEN, BLOOD 66 mg/dL (7-18)
--- NOTE | 2020-08-05 07:40 | NUR ---
MS RN OPENING NOTE PATIENT IS IN NO ACUTE DISTRESS. NO SOB NOTED. PATIENT IS ON ROOM AIR. TOLERATING WELL. PATIENT IS BEDBOUND. PATIENT HAS FERNANDEZ CATHETER. SAFETY PRECAUTIONS ARE IN PLACE. BED IN THE LOWEST POSITION. SIDE RAILS ARE UP, CALL LIGHT WITHIN REACH, WILL CONTINUE TO MONITOR CLOSELY.
[2020-08-05] MEDS: NEPRO VAN 237 ML CAN PO SCH ×3 (08:00→17:34)
[2020-08-05] MEDS: METOPROLOL TARTRATE 50 MG TABLET PO SCH ×2 (09:00→17:00)
[2020-08-05] MEDS: CITRIC ACID/SODIUM CITRATE (BICITRA)15 ML UDC PO SCH ×2 (09:11→17:37)
[2020-08-05] MEDS: SERTRALINE HCL 50 MG TABLET PO SCH (09:11)
[2020-08-05] MEDS: CARBIDOPA/LEVODOPA 25/250 MG 1 UDTAB PO SCH ×4 (09:11→21:24)
[2020-08-05] MEDS: Z GUARD REMEDY 2 OZ OINT TP SCH (09:15)
[2020-08-05] MEDS: DAKINS QUARTER STRENGTH (0.125%) 480 ML BOTTLE TOP SCH (09:15)
[2020-08-05] MEDS: HEPARIN SODIUM, PORCINE 5000 UNITS/1 ML VIAL SQ SCH ×2 (09:19→21:25)
--- NOTE | 2020-08-05 09:23 | NUR ---
MS RN NOTE DID ADMINISTER LOPRESSOR PATIENTS BLOOD PRESSURE IS LOW 98/57, AND NEPHRO VANILLA WAS NOT AVAILABLE DRIVER LICENSE REVIEWING OFFICER DISCARDED AFTER PATIENT DRANK IT.
[2020-08-05] MEDS: INSULIN ASPART/LISPRO 100 UNIT/ML CARTRIDGE SQ PRN ×2 (11:56→18:31)
[2020-08-05 16:00] VITALS: BP 99/77
--- NOTE | 2020-08-05 19:51 | NUR ---
MS RN CLOSING NOTE PATIENT IS IN NO ACUTE DISTRESS. NO SOB NOTED. PATIENT IS ON ROOM AIR. TOLERATING WELL. PATIENT IS BEDBOUND. PATIENT HAS FERNANDEZ CATHETER. SAFETY PRECAUTIONS ARE IN PLACE. BED IN THE LOWEST POSITION. SIDE RAILS ARE UP, CALL LIGHT WITHIN REACH. ENDORSE PATIENT TO CUFF RUNNER NURSE FOR HORACE.
--- NOTE | 2020-08-05 19:58 | NUR ---
MS RN OPENING NOTES PATIENT A/O X2 ABLE TO MAKE NEEDS KNOWN. ON ROOM AIR; TOLERATING WELL. IV RIGHT HANT #22 INFUSING NS @ 70 ML/HR; PATENT AND INTACT. FERNANDEZ CATHETER DRAINING CLOUDY YELLOW URINE; PATENT AND INTACT. NO COMPLAINTS OF PAIN AT THIS TIME. SAFETY MEASURES IN PLACE: BED LOCKED IN LOWEST POSITION; SIDE RAILS UP X2; CALL LIGHT WITHIN EASY REACH, HOB AT SEMI-FOWLERS POSITION. WILL CONTINUE TO MONITOR.
[2020-08-05 20:00] VITALS: BP 124/50
[2020-08-05] MEDS: *INSULIN ASPART NOVOLOG 100 UNIT/ML CARTRIDGE SQ PRN (22:44)
[2020-08-06] MEDS: PIPERACILLIN /TAZOBACTAM 2.25 G in IV D5W 50 ML IV SCH ×4 (00:46→18:00)
[2020-08-06] MEDS: BLOOD SUGAR DIAGNOSTIC 1 EACH STRIP IN SCH ×4 (06:42→21:38)
[2020-08-06] MEDS: INSULIN ASPART/LISPRO 100 UNIT/ML CARTRIDGE SQ PRN ×3 (06:50→17:48)
[2020-08-06 06:59] LABS: CALCIUM, SERUM 9.1 mg/dL (8.5-10.1); CARBON DIOXIDE 16 mmol/L (21-32); CHLORIDE 109 mmol/L (98-107); CREATININE 2.5 mg/dL (0.6-1.3); GLUCOSE 201 mg/dL (74-106); POTASSIUM 4.1 mmol/L (3.5-5.1); SODIUM SERUM 139 mmol/L (136-145); UREA NITROGEN, BLOOD 66 mg/dL (7-18)
--- NOTE | 2020-08-06 08:04 | NUR ---
MS RN CLOSING NOTES PATIENT A/O X1; ABLE TO MAKE NEEDS KNOWN. ON ROOM AIR; TOLERATING WELL. IV RIGHT HAND #22; PATENT AND INTACT. FERNANDEZ CATHETER DRAINING CLOUDY YELLOW URINE; PATENT AND INTACT. SAFETY MEASURES IN PLACE: BED LOCKED IN LOWEST POSITION; SIDE RAILS UP X2; CALL LIGHT WITHIN EASY REACH, HOB AT SEMI-FOWLERS POSITION. ENDORSED HORACE TO ONCOMING NURSE.
[2020-08-06 08:32] VITALS: BP 165/96
[2020-08-06] MEDS: CITRIC ACID/SODIUM CITRATE (BICITRA)15 ML UDC PO SCH ×2 (10:20→17:58)
[2020-08-06] MEDS: SERTRALINE HCL 50 MG TABLET PO SCH (10:20)
[2020-08-06] MEDS: CARBIDOPA/LEVODOPA 25/250 MG 1 UDTAB PO SCH ×4 (10:20→21:36)
[2020-08-06] MEDS: METOPROLOL TARTRATE 50 MG TABLET PO SCH ×2 (10:20→17:58)
[2020-08-06] MEDS: NEPRO VAN 237 ML CAN PO SCH ×3 (10:21→17:58)
[2020-08-06] MEDS: HEPARIN SODIUM, PORCINE 5000 UNITS/1 ML VIAL SQ SCH ×2 (10:24→21:38)
[2020-08-06] MEDS: DAKINS QUARTER STRENGTH (0.125%) 480 ML BOTTLE TOP SCH (10:24)
[2020-08-06] MEDS: Z GUARD REMEDY 2 OZ OINT TP PRN (10:25)
[2020-08-06] MEDS: Z GUARD REMEDY 2 OZ OINT TP SCH (10:26)
[2020-08-06 16:09] VITALS: BP 155/81
--- NOTE | 2020-08-06 18:56 | NUR ---
MS RN OPENING NOTES PATIENT A/O X2 ABLE TO MAKE NEEDS KNOWN. ON ROOM AIR; TOLERATING WELL. IV RIGHT HAND #22; PATENT AND INTACT. FERNANDEZ CATHETER DRAINING CLOUDY YELLOW URINE; PATENT AND INTACT. NO COMPLAINTS OF PAIN AT THIS TIME. SAFETY MEASURES IN PLACE: BED LOCKED IN LOWEST POSITION; SIDE RAILS UP X2; CALL LIGHT WITHIN EASY REACH, HOB AT SEMI-FOWLERS POSITION. WILL CONTINUE TO PLAN OF CARE.
[2020-08-06 20:00] VITALS: BP 157/70
--- NOTE | 2020-08-06 20:00 | NUR ---
MS RN CLOSING NOTE PATIENT IS IN NO ACUTE DISTRESS. NO SOB NOTED. PATIENT IS ON ROOM AIR. TOLERATING WELL. PATIENT IS BEDBOUND. PATIENT HAS FERNANDEZ CATHETER. SAFETY PRECAUTIONS ARE IN PLACE. BED IN THE LOWEST POSITION. SIDE RAILS ARE UP, CALL LIGHT WITHIN REACH. ENDORSE PATIENT TO DESKTOP PUBLISHING SPECIALIST NURSE FOR HORACE.
[2020-08-06] MEDS: *INSULIN ASPART NOVOLOG 100 UNIT/ML CARTRIDGE SQ PRN (21:39)
[2020-08-07] MEDS: PIPERACILLIN /TAZOBACTAM 2.25 G in IV D5W 50 ML IV SCH ×3 (00:07→12:18)
--- NOTE | 2020-08-07 07:03 | NUR ---
RN OPENING NOTE RECEIVED PT AWAKE IN BED AT THIS TIME. AOX1. NO SOB NOTED, NO S/S OF ANY ACUTE DISTRESS NOTED, NO S/O PAIN AT THIS TIME, OR FACIAL GRIMACE NOTED. IV ACCESS NOTED IN RIGHT HAND G#22, INTACT PATENT AND FLUSHING WELL. FERNANDEZ CATHETER NOTED IN PLACE, DRAINING TO GRAVITY CLEAR, TEA COLORED URINE OUTPUT. ASPIRATIONS AND SAFETY PRECAUTIONS IN PLACE AND MAINTAINED AT ALL TIMES. BED IN LOWEST LOCKED POSITION, SIDE RAILS UP, HOB ELEVATED, TABLE AND CALL LIGHT WITHIN REACH. WILL CONTINUE TO MONITOR.
[2020-08-07 07:06] LABS: BASOPHILS # (AUTO) 0.1 /CMM (0.0-0.2); BASOPHILS % (AUTO) 0.7 % (0.0-2.0); EOSINOPHILS % (AUTO) 3.6 % (0.0-6.0); HEMATOCRIT 31 % (33-45); LYMPHOCYTES # (AUTO) 2.3 /CMM (0.8-4.8); LYMPHOCYTES % (AUTO) 22.4 % (20.0-44.0); MEAN CORPUSCULAR HGB CONC 32 g/dl (31.0-36.0); MEAN CORPUSCULAR VOLUME 87 fL (82-100); MONOCYTES # (AUTO) 0.6 /CMM (0.1-1.30); MONOCYTES % (AUTO) 5.8 % (2.0-12.0); NEUTROPHILS # (AUTO) 6.8 /CMM (1.8-8.9); NEUTROPHILS % (AUTO) 67.5 % (43.0-81.0); PLATELET COUNT (AUTO) 310 /CMM (150-450); RED BLOOD CELL COUNT(AUTO) 3.58 MIL/uL (4.0-5.2); WHITE BLOOD COUNT (AUTO) 10.1 K/uL (4.3-11.0)
[2020-08-07 07:26] LABS: CALCIUM, SERUM 9.6 mg/dL (8.5-10.1); CARBON DIOXIDE 18 mmol/L (21-32); CHLORIDE 109 mmol/L (98-107); CREATININE 2.6 mg/dL (0.6-1.3); GLUCOSE 105 mg/dL (74-106); POTASSIUM 4.4 mmol/L (3.5-5.1); SODIUM SERUM 141 mmol/L (136-145); UREA NITROGEN, BLOOD 66 mg/dL (7-18)
[2020-08-07] MEDS: BLOOD SUGAR DIAGNOSTIC 1 EACH STRIP IN SCH ×2 (07:50→12:16)
[2020-08-07] MEDS: INSULIN ASPART/LISPRO 100 UNIT/ML CARTRIDGE SQ PRN (07:52)
[2020-08-07 08:00] VITALS: BP 158/77
[2020-08-07] MEDS: SERTRALINE HCL 50 MG TABLET PO SCH (09:04)
[2020-08-07 09:05] VITALS: BP 158/77
[2020-08-07] MEDS: METOPROLOL TARTRATE 50 MG TABLET PO SCH (09:05)
[2020-08-07] MEDS: CITRIC ACID/SODIUM CITRATE (BICITRA)15 ML UDC PO SCH (09:05)
[2020-08-07] MEDS: CARBIDOPA/LEVODOPA 25/250 MG 1 UDTAB PO SCH ×2 (09:06→12:18)
[2020-08-07] MEDS: NEPRO VAN 237 ML CAN PO SCH ×2 (09:07→12:22)
[2020-08-07] MEDS: Z GUARD REMEDY 2 OZ OINT TP SCH (09:07)
[2020-08-07] MEDS: HEPARIN SODIUM, PORCINE 5000 UNITS/1 ML VIAL SQ SCH (09:09)
[2020-08-07] MEDS: DAKINS QUARTER STRENGTH (0.125%) 480 ML BOTTLE TOP SCH (10:00)
--- NOTE | 2020-08-07 14:47 | NUR ---
PT PENDING DISCHARGE TO [facility], DEDRA RESTREPO ([phone]), PT'S SON UPDATED. WILL CONTINUE WITH PLAN OF CARE
--- NOTE | 2020-08-07 15:44 | NUR ---
OUTSOLE HANDLER NOTES. PT DISCHARGE TO [facility] AT THIS TIME. REPORT CALLED IN TO GEOVANNI CONTI @ [facility]. PT MEDICALLY STABLE AND CLEARED FOR DISCHARGE. ALL CARE, NEED, MEDICATIONS AND TREATMENT ADMINISTERED ANTICIPATED PER ORDER. ALL DISCHARGE INSTRUCTIONS/TEACHINGS PROVIDED.PT HAD NO BELONGINGS. PICTURES TAKEN AND FILED IN CHART BY WING MAILER MACHINE OPERATOR NURSE. ID BAND REMOVED. IV ASSESS REMOVED, PRESSURE APPLIED, SECURED WITH GAUZE AND TAPE. NO S/O BLEEDING OR INFILTRATION NOTED. PT TRANSPORTED OUT OF UNIT IN STABLE CONDITION BY [facility], ACCOMPANIED BY TWO AMBULANCE PERSONNELS. DR RAMOS AND SUE, CHARGE NURSE AWARE.
== END 2020-08-07 15:53 | disposition hospice, home (50) | DRG 682 ==
LOC: ER 08:54 → TELE1 11:04 → MEDSG1 08-02 08:58 → MED 08-03 10:39
PROVIDERS: ADMIT Internal Medicine; ATTEND Internal Medicine
PROC: 30233N1 Transfusion of Nonautologous Red Blood Cells into Peripheral Vein, Percutaneous Approach (ICD-10-PCS; principal; 2020-08-02)
DX: N17.0 Acute kidney failure with tubular necrosis (principal); G92 Toxic encephalopathy; E43 Unspecified severe protein-calorie malnutrition; N39.0 Urinary tract infection, site not specified; E87.2 Acidosis; J90 Pleural effusion, not elsewhere classified; I13.0 Hypertensive heart and chronic kidney disease with heart failure and stage 1 through stage 4 chronic kidney disease, or unspecified chronic kidney disease; I48.91 Unspecified atrial fibrillation; G20 Parkinson's disease; I25.10 Atherosclerotic heart disease of native coronary artery without angina pectoris; Z86.73 Personal history of transient ischemic attack (TIA), and cerebral infarction without residual deficits; R31.9 Hematuria, unspecified; B95.2 Enterococcus as the cause of diseases classified elsewhere; E86.0 Dehydration; E87.5 Hyperkalemia; N18.4 Chronic kidney disease, stage 4 (severe); Z79.4 Long term (current) use of insulin; Z79.01 Long term (current) use of anticoagulants; Z90.49 Acquired absence of other specified parts of digestive tract; N13.9 Obstructive and reflux uropathy, unspecified; I50.9 Heart failure, unspecified; D50.9 Iron deficiency anemia, unspecified; D63.8 Anemia in other chronic diseases classified elsewhere; E88.09 Other disorders of plasma-protein metabolism, not elsewhere classified; Z68.25 Body mass index [BMI] 25.0-25.9, adult; Z66 Do not resuscitate; F32.9 Major depressive disorder, single episode, unspecified; F02.80 Dementia in other diseases classified elsewhere, unspecified severity, without behavioral disturbance, psychotic disturbance, mood disturbance, and anxiety; E87.70 Fluid overload, unspecified; Z74.01 Bed confinement status; E11.22 Type 2 diabetes mellitus with diabetic chronic kidney disease; K86.89 Other specified diseases of pancreas; Z20.822 Contact with and (suspected) exposure to COVID-19; B96.5 Pseudomonas (aeruginosa) (mallei) (pseudomallei) as the cause of diseases classified elsewhere
CPT/HCPCS: 36415; 71045-TC; 80048-TC; 80053-TC; 80076-TC; 81001; 82378; 82550-TC; 82962-TC; 83540-TC; 83605-TC; 83690-TC; 83735-TC; 83970; 84100-TC; 84155; 84165; 84484-TC; 85025-TC; 85730-TC; 86301; 86850-TC; 87040-TC; 87081-TC; 87086-TC; 87186-TC; 93970-TC; A6253; A6403; G0378; J0692; J0696; J1644; J1815; J2185; J2270; J2405; J2543; J3370; J3490; J7030; J7040; J7042; J7060; P9016-BL; U0003